=== PATIENT | female | born 1950 | race Caucasian/White ===

== ENCOUNTER 2019-04-25 15:35 | Outpatient (CLI) | payer MEDICARE, SELFPAY ==
--- NOTE | ~2019-04-25 | MM_ITS ---
EXAMINATION: MM screening gustavo BI w mary HISTORY: Screening mammogram TECHNIQUE: Craniocaudal and mediolateral oblique 3-D tomosynthesis images were obtained and synthetic 2-D images were generated. CAD analysis was submitted and interpreted. COMPARISON: 12/29/2017, 12/28/2016, 12/19/2015 bilateral digital screening mammogram examinations BREAST PARENCHYMAL COMPOSITION: FINDINGS: There is no evidence of suspicious mass, calcification, or architectural distortion to sugg est malignancy in either breast. There has been no suspicious interval change. IMPRESSION: 1. No mammographic evidence of malignancy. 2. Recommend routine screening mammography in one year. BI-RADS Category 1: Negative Reviewed, dictated and finalized at location A. WAY ENGINEERING TECHNICIAN
== END 2019-04-25 15:36 | disposition home or self-care (01) ==
LOC: ANHIMG 15:40
PROVIDERS: PCP Internal Medicine; Visit Provider Obstetrics & Gynecology
DX: Z12.31 Encounter for screening mammogram for malignant neoplasm of breast (principal)
CPT/HCPCS: 77063; 77067

== ENCOUNTER 2019-06-15 11:50 | Outpatient (CLI) | payer MEDICARE, SELFPAY ==
[2019-06-15 12:40] LABS: Alanine Aminotransferase 22 U/L (4-35); Albumin Level 4.6 g/dL (3.5-5.1); Alkaline Phosphatase 71 U/L (38-126); Aspartate Amino Transferase 28 U/L (14-36); Bilirubin,Total 0.4 mg/dL (0.2-1.3); Blood Urea Nitrogen 21 mg/dL (7-17); Calcium 9.6 mg/dL (8.4-10.2); Carbon Dioxide 29 mmol/L (22-30); Chloride 100 mmol/L (98-107); Cholesterol 199 mg/dL (0-200); Estimated Glomerular Filt Rate 49; Glucose 124 mg/dL (65-105); HDL Direct 78 mg/dL; Potassium 4.1 mmol/L (3.4-5.0); Sodium 136 mmol/L (137-145); Triglycerides 49 mg/dL (<150)
[2019-06-15 12:41] LABS: Basophils Percent Auto 0.1 % (0.2-1.2); Hemoglobin 14.3 g/dL (12.0-15.0); Immature Granulocyte Absolute 0.04 K/mm3 (0.00-0.031); Immature Granulocyte Percent A 0.4 % (0-0.5); Lymphocytes Absolute Auto 0.58 K/mm3 (0.9-3.2); Lymphocytes Percent Auto 5.6 % (18.3-44.2); Mean Corpuscular HGB Conc 32.5 g/dl (32-36); Mean Corpuscular Hemoglobin 27.3 pg (26-34); Mean Corpuscular Volume 84.1 fl (80-100); Mean Platelet Volume 9.6 fl (7.4-10.4); Monocytes Absolute Auto 0.3 K/mm3 (0.1-0.6); Monocytes Percent Auto 2.4 % (2.6-8.5); Neutrophils Absolute Auto 9.4 K/mm3 (1.3-6.7); Neutrophils Percent Auto 91.5 % (45.5-73.1); Platelet Count Result 253 k/mm3 (150-375); Red Blood Count 5.23 M/mm3 (4.2-5.4); Red Cell Distribution Width 12.5 % (11.5-14.5); White Blood Count 10.3 K/mm3 (4.5-10.0)
[2019-06-15 12:51] LABS: LDL Cholesterol Direct 88 mg/dL
[2019-06-15 17:36] LABS: Free T4 Free Thyroxine 1.69 ng/mL (0.78-2.19)
[2019-06-16 19:47] LABS: Angiotensin Converting Enzyme 27 U/L (9-67)
== END 2019-06-15 11:51 | disposition home or self-care (01) ==
LOC: ANHLAB 12:04
PROVIDERS: PCP Internal Medicine; Visit Provider Internal Medicine
DX: R05 Cough (principal); Z79.899 Other long term (current) drug therapy
CPT/HCPCS: 36415; 80053; 80061; 82164; 82785; 83036; 84439; 84443; 85025; 86003

== ENCOUNTER 2019-06-15 14:47 | Outpatient (CLI) | payer MEDICARE, SELFPAY ==
--- NOTE | ~2019-06-15 | CT_ITS ---
EXAMINATION: CT chest high resolution wo sd DATE: 06/15/2019 12:52 INDICATION: Chronic cough TECHNIQUE: Computed tomography (CT) of the chest was performed without intravenous contrast. The dose -length product (DLP) was 226.62 mGy-cm. Automated exposure control and iterative reconstruction tech nique were employed. COMPARISON: 10/31/2018 FINDINGS: The lungs are free of acute opacities. There is no pleural effusion or pneumothorax. Calcif ied pulmonary nodules and calcified right hilar and mediastinal lymph nodes are consistent with old g ranulomatous disease. Again noted is a fissural lymph node in the minor fissure. The heart size is no rmal. There are no pathologically enlarged thoracic lymph nodes. There is moderate thoracic spondylos is. IMPRESSION: 1. No CT correlate for the patient's symptoms. No acute cardiopulmonary abnormality. Reviewed, dictated and finalized at location A. IMPRESSION: 1. No CT correlate for the patient's symptoms. No acute cardiopulmonary abnorma lity.
== END 2019-06-15 14:48 | disposition home or self-care (01) ==
LOC: ANHIMG 07-21 14:47
PROVIDERS: PCP Internal Medicine; Visit Provider Internal Medicine
DX: R05 Cough (principal)
CPT/HCPCS: 71250

== ENCOUNTER 2019-06-19 08:29 | Outpatient (CLI) | payer MEDICARE, SELFPAY | END 2019-06-19 08:30 | disposition home or self-care (01) | PROVIDERS: PCP Internal Medicine; Visit Provider Internal Medicine | DX: R05 Cough (principal) | CPT/HCPCS: 87070; 87205 ==

== ENCOUNTER 2019-06-21 09:19 | Outpatient (CLI) | payer MEDICARE, SELFPAY ==
--- NOTE | ~2019-06-21 | XR_ITS ---
MODIFIED ESOPHAGRAM HISTORY: Cough with eating TECHNIQUE: Modified barium esophagram was performed by speech pathologist under radiologist fluorosco pic guidance. This was recorded on tape. The exam was reviewed on 06/21/2019 10:29 CDT. The DAP for this procedure was 0.87 Gycm2. Fluoroscopy time is 1.4 minutes. FINDINGS: Lateral projection of the cervical spine demonstrates normal alignment. There is normal s wallowing function without laryngeal penetration or aspiration. The upper esophageal sphincter appear s slightly narrowed with trace backflow to the piriform sinus.. IMPRESSION: 1: Normal swallowing without penetration or aspiration. 2: Please refer to speech pathologist report for additional detail. Reviewed, dictated and finalized at location A.
--- NOTE | 2019-06-21 11:46 | STOPEVAL ---
Modified Barium Swallow Evaluation: Attending Provider: Alfred Lopez MD *ST Outpatient Evaluation Start: 06/21/19 11:33 Freq: Status: Active Protocol: Document 06/21/19 11:34 BECHERERT (Rec: 06/21/19 11:46 BECHERERT [email or web address]) Therapy Assessment Status Assessment Status Assessment Status Evaluation Outpatient Past Medical History Respiratory History Hx Asthma Yes Pain Assessment Timing of Pain Assessment Timing of Pain Assessment Assessment Self Report Self Report Pain Level 0 Pain Scale Pain Scale Used Numeric (1 - 10) Pain Score Pain Score 0: Self Report Modified Barium Swallow Evaluation Recent Swallowing History Reports Dysphagia occasional cough with eating Duration of Dysphagia 2 years Reported Difficult Consistencies Unable to Identify Intake Method Prior to Swallow Oral Evaluation Diet Prior to Swallow Evaluation Regular, Level 7 Liquid Consistency Prior to Swallow Thin (0) Evaluation Consistency Thin Uncontrolled 1 Other Amount cup and straw Oral Preparatory Symptoms None Oral Phase Symptoms None Pharyngeal Phase Symptoms Within Functional Limits, Cricopharyngeal Dysfunction Severity of Vallecular Residue None - 0% No Residue Severity of Pyriform Sinus Residue None - 0% No Residue 8 Point Laryngeal Penetration-Aspiration Material Does Not Enter Airway Scale Pharyngeal Phase Comments appearance of a slightly tight UES -- trace backflow to pyriform sinus Cervical/Esophageal Symptoms Within Functional Limits Solid Consistency Uncontrolled 2 Other Amount liquid/solid mix (fruit cocktail) Method of Presentation Spoon Oral Preparatory Symptoms None Oral Phase Symptoms None Pharyngeal Phase Symptoms Within Functional Limits, Cricopharyngeal Dysfunction Severity of Vallecular Residue None - 0% No Residue Severity of Pyriform Sinus Residue None - 0% No Residue 8 Point Laryngeal Penetration-Aspiration Material Does Not Enter Airway Scale Pharyngeal Phase Comments appearance of a slightly tight UES -- trace backflow to pyriform sinus Cervical/Esophageal Symptoms Within Functional Limits Solid Consistency Uncontrolled 1 Other Amount cracker Method of Presentation Spoon Oral Preparatory Symptoms None Oral Phase Symptoms None Pharyngeal Phase Symptoms Within Functional Limits, Cricopharyngeal Dysfunction Severity of Vall
== END 2019-06-21 09:20 | disposition home or self-care (01) ==
PROVIDERS: PCP Internal Medicine; Visit Provider Internal Medicine
DX: R05 Cough (principal)
CPT/HCPCS: 92611

== ENCOUNTER 2019-09-05 08:51 | Outpatient (RCR) | payer MEDICARE, SELFPAY ==
--- NOTE | 2019-09-07 14:58 | STOPEVAL ---
OUTPATIENT SPEECH THERAPY EVALUATION AND DISCHARGE: Thank you for referring Yadira Medley to [facility]. Please review, sign, date and return this evaluation & discharge summary KUSUM. I agree with and certify that the following plan of care is medically necessary. Referring Physician Date Attending Provider: Alfred Lopez MD * Outpatient Evaluation & Discharge: Start: 09/07/19 14:37 Freq: Status: Active Protocol: Document 09/05/19 09:00 BECHERERT (Rec: 09/07/19 14:58 BECHERERT [email or web address]) Therapy Assessment Status Assessment Status Assessment Status Evaluation Outpatient Past Medical History Past Medical History No Past Medical/Surgical History Patient/Family Denies Significant Past Medical/ Surgical History Respiratory History Hx Asthma Yes Prior Level of Function Prior Swallow Level Prior Intake Method Oral Prior Diet Regular (Level 7 Diet) Prior Liquid Consistency Thin (Level 0 Diet) Pain Assessment Timing of Pain Assessment Timing of Pain Assessment Assessment Self Report Self Report Pain Level 0 Pain Score Pain Score 0: Self Report Bedside Swallow Evaluation General Reports Dysphagia Yes Onset of Dysphagia 2 years ago History of Dysphagia No Other Factors Impacting Dysphagia None History of Pneumonia No Intake Method Prior to Swallow Oral Evaluation Diet Prior to Swallow Evaluation Regular, Level 7 Liquid Consistency Prior to Swallow Thin (0) Evaluation Cognition During Swallowing Alert,Attentive Recommendations Feeding Type Recommended Oral Food Consistency Regular, Level 7 Liquid Consistency Thin (0) Mealtime Procedures Recommended Multiple Swallows Speech Therapy Teaching Adult Speech Therapy Teaching Swallowing/Communication Education Topic Swallowing As Pertains to Compensatory Strategies, Potential Etiology,Test Results Recipient(s) of Teaching Patient Learning Preferences One-on-One Instruction Barriers to Learning None Readiness to Learn Excellent Teaching Method(s) Handout,One-On-One Instruction Response(s) to Teaching Verbalizes Understanding ST Clinical Summary Clinical Summary ST Clinical Summary Pt was seen for an outpatient MBS on 06-21-2019 completed by this MICROMATIC HONE OPERATOR. At that time, results revealed the following (summary copied from that report):
== END 2019-09-08 15:10 | disposition home or self-care (01) ==
LOC: ANHST 08:51
PROVIDERS: PCP Internal Medicine; Visit Provider Internal Medicine
DX: R13.10 Dysphagia, unspecified (principal); R05 Cough
CPT/HCPCS: 92610

== ENCOUNTER 2020-02-07 09:42 | Outpatient (NON) | payer MEDICARE, SELFPAY ==
[2020-02-07 12:33] LABS: Influenza Control Positive
== END 2020-02-07 09:43 ==
PROVIDERS: PCP Internal Medicine; Visit Provider Internal Medicine
DX: R68.89 Other general symptoms and signs (principal)
CPT/HCPCS: 87804

== ENCOUNTER 2020-02-12 14:32 | Outpatient (CLI) | payer MEDICARE, SELFPAY ==
--- NOTE | ~2020-02-12 | XR_ITS ---
EXAMINATION: XR chest 2V DATE: 02/12/2020 14:54 INDICATION: Shortness of breath. COVID-19 pneumonia. TECHNIQUE: Frontal and lateral views of the chest were obtained. COMPARISON: Chest 2 views 08/12/2018, chest CT 06/15/2019 FINDINGS: There is mild scarring at the lung apices. There are airspace opacities in the mid and lowe r lung zones. No pleural effusion or pneumothorax. The heart size is normal. Calcified right hilar an d mediastinal lymph nodes are consistent with old granulomatous disease. Surgical clips in the right upper quadrant are likely from cholecystectomy. IMPRESSION: 1. Airspace opacities in the mid and lower lung zones, consistent with pneumonia. Reviewed, dictated and finalized at location A. CTURAL STEEL EQUIPMENT ERECTOR IMPRESSION: 1. Airspace opacities in the mid and lower lung zones, consistent with pneumoni a.
== END 2020-02-12 14:33 | disposition home or self-care (01) ==
PROVIDERS: PCP Internal Medicine; Visit Provider Internal Medicine
DX: U07.1 COVID-19 (principal); R06.02 Shortness of breath; R91.8 Other nonspecific abnormal finding of lung field
CPT/HCPCS: 71046

== ENCOUNTER 2020-02-17 11:05 | Inpatient (IN) | payer MEDICARE, SELFPAY ==
[2020-02-17] VITALS (13 sets, daily range): BP systolic 114–154; BP diastolic 64–85; PULSE 70–84; RESP 18–24; TEMP 35.9–36.6; O2SAT 86–98; BMI 33.0
--- NOTE | ~2020-02-17 | XR_ITS ---
EXAMINATION: XR chest 1V portable EXAM DATE: 02/17/2020 11:49 INDICATION: covid +, shortness of breath. TECHNIQUE: Portable AP frontal chest x-ray was obtained. Comparison is made to prior examination from 02/12/2020. FINDINGS: On prior study there are scattered bibasilar small opacities. These have progressed, now mo derate amount of bibasilar airspace disease, consistent with provided history of COVID pneumonia. No pneumothorax or pleural effusion. Cardiomediastinal silhouette is normal. There are cholecystectomy c lips. There are no osseous abnormalities identified. IMPRESSION: Worsening moderate amount of bibasilar COVID pneumonia. Reviewed, dictated and finalized at location A. TRONICS HARDWARE DESIGN ENGINEER
--- NOTE | 2020-02-17 11:33 | ECG_ITS ---
Measurements Intervals [place] Rate: 75 P: 43 VA: 143 QRS: -22 QRSD: 97 T: 30 QT: 407 QTc: 457 Interpretive Statements SINUS RHYTHM BORDERLINE T WAVE ABNORMALITY- INFERIOR LEADS BASELINE ARTIFACT- I, II, V3, V6 BORDERLINE ECG Electronically Signed On 02-17-2020 14:17:20 LINE RUNNER by Dell Bales D.O.
[2020-02-17 11:50] LABS: Basophils Percent Auto 0.2 % (0.2-1.2); Eosinophils Percent Auto 0.9 % (0-4.4); Hematocrit 43.3 % (37.0-47.0); Hemoglobin 14.4 g/dL (12.0-15.0); Immature Granulocyte Absolute 0.02 K/mm3 (0.00-0.031); Immature Granulocyte Percent A 0.4 % (0-0.5); Lymphocytes Absolute Auto 0.71 K/mm3 (0.9-3.2); Lymphocytes Percent Auto 15.9 % (18.3-44.2); Mean Corpuscular HGB Conc 33.3 g/dl (32-36); Mean Corpuscular Hemoglobin 26.9 pg (26-34); Mean Corpuscular Volume 80.9 fl (80-100); Mean Platelet Volume 8.5 fl (7.4-10.4); Monocytes Absolute Auto 0.2 K/mm3 (0.1-0.6); Monocytes Percent Auto 4.7 % (2.6-8.5); Neutrophils Absolute Auto 3.5 K/mm3 (1.3-6.7); Neutrophils Percent Auto 77.9 % (45.5-73.1); Platelet Count Result 296 k/mm3 (150-375); Red Blood Count 5.35 M/mm3 (4.2-5.4); Red Cell Distribution Width 13.4 % (11.5-14.5); White Blood Count 4.5 K/mm3 (4.5-10.0)
[2020-02-17 12:04] LABS: Alanine Aminotransferase 90 U/L (4-35); Albumin Level 3.7 g/dL (3.5-5.1); Alkaline Phosphatase 76 U/L (38-126); Anion Gap 7 mmol/L (8-16); Aspartate Amino Transferase 106 U/L (14-36); Bilirubin,Total 0.6 mg/dL (0.2-1.3); Blood Urea Nitrogen 7 mg/dL (7-17); Calcium 8.6 mg/dL (8.4-10.2); Carbon Dioxide 33 mmol/L (22-30); Chloride 95 mmol/L (98-107); Estimated CRCL calculation 59 ml/min; Estimated Glomerular Filt Rate > 60; Glucose 97 mg/dL (65-105); Potassium 3.8 mmol/L (3.4-5.0); Sodium 135 mmol/L (137-145)
[2020-02-17 12:08] LABS: CRP 8.8 mg/dL (<1.0)
[2020-02-17 12:12] LABS: Lactic Acid Reflex 0.9 mmol/L (0.7-2.1)
--- NOTE | 2020-02-17 12:14 | ED.URI ---
HPI - URI/Sore Throat General Chief Complaint: Upper Respiratory Infection <Radha Shelley PA-C - Last Filed: 02/17/20 19:06> Stated Complaint: covid/weakness <PONCHO Juarez Last Filed: 02/17/20 19:06> Time Seen by Provider: 02/17/20 11:29 <PONCHO Juarez Last Filed: 02/17/20 19:06> Source: patient <PONCHO Juarez Last Filed: 02/17/20 19:06> Mode of arrival: ambulatory <PONCHO Juarez Last Filed: 02/17/20 19:06> Limitations: no limitations <PONCHO Juarez Last Filed: 02/17/20 19:06> History of Present Illness HPI Narrative: This is a 70 year old female that presents to the ER for generalized weakness. Reports she was diagnosed with COVID about 10 days ago. Reports she is feeling short of breath. Reports cough. Reports her fever has now broke, she is no longer having diarrhea. Her oxygen saturation was reading in the upper 80s to low 90s at home which prompted her to be seen. Reports she has finished a Z pac for pneumonia. Denies chest pain or lower extremity edema. <Radha Shelley PA-C - Last Filed: 02/17/20 19:06> Related Data Home Medications: Home Medications Medication Instructions Recorded Confirmed cetirizine 10 mg capsule 10 mg PO DAILY PRN cap 01/09/19 02/17/20 flaxseed oil 1,000 mg capsule 1,000 mg PO DAILY 01/09/19 02/17/20 levothyroxine 137 mcg tablet 137 mcg PO DAILY 01/09/19 02/17/20 mecobalamin (vitamin B12) 1,000 1,000 mcg SUBLINGUAL DAILY 01/09/19 02/17/20 mcg disintegrating tablet,sublingual <PONCHO Juarez Last Filed: 02/17/20 19:06> Allergies/Adverse Reactions: Allergies Allergy/AdvReac Type Severity Reaction Status Date / Time Cephalosporins Allergy Unknown Skin Verified 02/17/20 11:35 Reaction <Radha Shelley PA-C - Last Filed: 02/17/20 19:06> Review of Systems Review of Systems: Narrative: CONSTITUTIONAL: Denies fever ENT: Reports congestion CARDIOVASCULAR: Denies chest pain, or edema. RESPIRATORY: Reports cough and dyspnea. GASTROINTESTINAL: Reports diarrhea. GENITOURINARY: Denies dysuria MUSCULOSKELETAL: Reports myalgias NEUROLOGIC: Reports generalized weakness. <Radha Shelley PA-C - Last Filed: 02/17/20 19:06> All systems reviewed & are unremarkable except as noted in HPI and below <Radha Shelley PA-C - Last Filed: 02/17/20 19:06> [facility] Past Medical History Medical History: Medical History Asthma Benign essential hypertension BMI 32.0-32.9,adult Chronic cough Dysphagia Encounter for Medicare annual wellness exam Follow up GERD (gastroesophageal reflux disease) Hearing loss Hypothyroidism (acquired) Mild reactive airways disease Mixed hyperlipidemia On terminal superintendent drug therapy On custodial drug therapy MELISSA on CPAP Pre-diabetes Routine gynecological examination Sleep apnea <Radha Shelley PA-C - Last Filed: 02/17/20 19:06> Surgical History Surgical History: Surgical History History of cholecystectomy <Radha Shelley PA-C - Last Filed: 02/17/20 19:06> Family History Family History: Family History Mother Hypertension Family history of lung disease <Radha Shelley PA-C - Last Filed: 02/17/20 19:06> Social History Social History: Social History (Updated 02/17/20 @ 15:06 by Margarita Hale PA-C) Social History: Patient drinks about 1 alcoholic beverage a night and has never smoked. She does not do drugs. She would like to be a full code and if she is unable to make decisions for herself she would like her , Don, to make decisions for her Smoking status: Never smoker Alcohol intake: current Drinks per week: 1 Substance use: never Gender identity (if verbalized by the patient): Female Spiritual care concerns: No
[2020-02-17] MEDS: DEXAMETHASONE SOD PHOS INJ 4 MG/ML VIAL 6 MG IV PUSH (13:15)
[2020-02-17 13:16] LABS: Add Urine Microscopic? YES; Appearance Urine Clear (Clear); Bacteria Urine Trace /hpf; Bilirubin Urine Negative (Negative); Blood Urine 1+ (Negative); Color Urine Yellow (Yellow); Glucose Urine UA Negative (Negative); Ketones Urine Negative (Negative); Leukocyte Esterase Ur Negative LEU/UL (Negative); Mucus Urine Rare /lpf; Nitrate Urine Negative (Negative); Protein Urine Negative (Negative); Specific Grav Ur 1.008 (1.001-1.035); Urobilinogen Urine Negative mg/dL (<2.0)
[2020-02-17] MEDS: REMDESIVIR 200 MG/NS 250 ML 200 MG/250 ML BAG 250 MG IVPB (13:52)
--- NOTE | 2020-02-17 14:22 | PM.IMHP ---
H&P: HPI History of Present Illness Date/Time: 02/17/20 14:22 Chief Complaint: Shortness of breath Narrative: Yadira Medley is a 70 year old female with a past medical history of asthma, hypertension, obstructive sleep apnea, and hypothyroidism and a recent history of COVID-19 infection who presented emergency room for worsening shortness of breath and fever. Patient states that she started having symptoms February 05, 2020 after multiple coworkers were tested positive. She was given antibiotics outpatient which did not seem to help. She had a outpatient chest x-ray which showed pneumonia and she was trying to manage this with her primary care physician. She has nebulizers at home and she started using those every 4 hours but noted that she continued to have hypoxia with oxygen saturations in the 80s which prompted her to come in. She is feeling better now on the oxygen but continues to have a significant cough. She is coughing up yellow sputum with bright red specks. Her shortness of breath seems to be more with activity and with coughing spells but not so much at rest. She has some back pain in the right side of her back with cough but no chest pain. She has had diarrhea for the last 7 days but that seems to be resolving. Her appetite is low but she is still able to eat. She denies leg swelling, nausea, vomiting, abdominal pain, dysuria, and chills. She has had a fever intermittently throughout the last week. She has multiple coworkers and family members that are positive. Review of Systems Review of Systems: All systems reviewed & are unremarkable except as noted in HPI and below PMFSH Past Medical History Medical History Asthma Benign essential hypertension BMI 32.0-32.9,adult Chronic cough Dysphagia Encounter for Medicare annual wellness exam Follow up GERD (gastroesophageal reflux disease) Hearing loss Hypothyroidism (acquired) Mild reactive airways disease Mixed hyperlipidemia On longitudinal float operator drug therapy On longitudinal float operator drug therapy MELISSA on CPAP Pre-diabetes Routine gynecological examination Sleep apnea Surgical History Surgical History History of cholecystectomy Family History Family History Mother Hypertension Family history of lung disease Social History Social History (Updated 02/17/20 @ 15:06 by Margarita Hale PA-C) Social History: Patient drinks about 1 alcoholic beverage a night and has never smoked. She does not do drugs. She would like to be a full code and if she is unable to make decisions for herself she would like her , Don, to make decisions for her Smoking status: Never smoker Alcohol intake: never Gender identity (if verbalized by the patient): Female Meds Home Medications and Allergies Home Medications Medication Instructions Recorded Confirmed Type cetirizine 10 mg capsule 10 mg PO DAILY PRN cap 01/09/19 08/24/19 History cinnamon bark 500 mg capsule 500 mg PO DAILY 01/09/19 08/24/19 History flaxseed oil 1,000 mg capsule 1,000 mg PO DAILY 01/09/19 08/24/19 History levothyroxine 137 mcg tablet 137 mcg PO DAILY 01/09/19 08/24/19 History lysine 500 mg tablet 500 mg PO DAILY 01/09/19 08/24/19 History mecobalamin (vitamin B12) 1,000 1,000 mcg SUBLINGUAL DAILY 01/09/19 08/24/19 History mcg disintegrating tablet,sublingual hfpbaver-zetuzlc-film-lutein tablet mcg PO DAILY tablet 01/09/19 08/24/19 History omega 1-zzf-xti-fish oil 1,200 mg cap PO 01/09/19 08/24/19 History (144 mg-216 mg) capsule pseudoephedrine HCl 30 mg tablet 30 mg PO Q4-6H PRN 01/09/19 08/24/19 History fluticasone fur. 100 mcg-umeclid 1 inhalation INHALATION DAILY #28 01/10/19 08/24/19 Rx 62.5 mcg-vilant 25 mcg each inhalat.powder methylprednisolone 4 mg tablets in See Rx Instructions PO PER PKG DIR 06/13/19 07
[2020-02-17] MEDS: ENOXAPARIN 40 MG/0.4 ML SYRINGE SUB-Q (20:10)
[2020-02-17] MEDS: ALBUTEROL SULFATE (*SP) AEROSOL 1 PUFF 2 PUFF INHALATION (21:02)
[2020-02-18] VITALS (7 sets, daily range): BP systolic 100–117; BP diastolic 55–73; PULSE 66–76; RESP 16–20; TEMP 35.9–36.6; O2SAT 91–94
[2020-02-18] MEDS: ACETAMINOPHEN 325 MG TABLET 650 MG PO (00:43)
[2020-02-18] MEDS: ALBUTEROL SULFATE (*SP) AEROSOL 1 PUFF 2 PUFF INHALATION ×4 (00:45→21:18)
[2020-02-18 07:18] LABS: Basophils Percent Auto 0.2 % (0.2-1.2); Hematocrit 39.2 % (37.0-47.0); Hemoglobin 13.1 g/dL (12.0-15.0); Immature Granulocyte Absolute 0.03 K/mm3 (0.00-0.031); Immature Granulocyte Percent A 0.6 % (0-0.5); Lymphocytes Absolute Auto 0.62 K/mm3 (0.9-3.2); Lymphocytes Percent Auto 12.5 % (18.3-44.2); Mean Corpuscular HGB Conc 33.4 g/dl (32-36); Mean Corpuscular Hemoglobin 26.8 pg (26-34); Mean Corpuscular Volume 80.3 fl (80-100); Mean Platelet Volume 8.5 fl (7.4-10.4); Monocytes Absolute Auto 0.2 K/mm3 (0.1-0.6); Monocytes Percent Auto 3.4 % (2.6-8.5); Neutrophils Absolute Auto 4.1 K/mm3 (1.3-6.7); Neutrophils Percent Auto 83.3 % (45.5-73.1); Platelet Count Result 331 k/mm3 (150-375); Red Blood Count 4.88 M/mm3 (4.2-5.4); Red Cell Distribution Width 13.1 % (11.5-14.5)
[2020-02-18 07:25] LABS: Alanine Aminotransferase 74 U/L (4-35); Albumin Level 3.4 g/dL (3.5-5.1); Alkaline Phosphatase 69 U/L (38-126); Anion Gap 7 mmol/L (8-16); Aspartate Amino Transferase 64 U/L (14-36); Bilirubin,Total 0.6 mg/dL (0.2-1.3); Blood Urea Nitrogen 8 mg/dL (7-17); Calcium 8.5 mg/dL (8.4-10.2); Carbon Dioxide 29 mmol/L (22-30); Chloride 96 mmol/L (98-107); Estimated CRCL calculation 77 ml/min; Estimated Glomerular Filt Rate > 60; Glucose 132 mg/dL (65-105); Sodium 132 mmol/L (137-145)
[2020-02-18 07:44] LABS: Ovalocytes 1+ (NORMAL); Platelet Estimate Adequate (Adequate)
[2020-02-18] MEDS: DEXAMETHASONE SOD PHOS INJ 4 MG/ML VIAL 6 MG IV PUSH (08:55)
[2020-02-18] MEDS: ENOXAPARIN 40 MG/0.4 ML SYRINGE SUB-Q ×2 (08:56→20:58)
[2020-02-18] MEDS: FLUTICASONE PROPIONATE 0.05% NA SPR 16 GM BTL (*BKC) 2 SPRAY NASAL (13:43)
[2020-02-18] MEDS: MONTELUKAST SODIUM 10 MG TABLET BY MOUTH (13:44)
[2020-02-18] MEDS: LEVOTHYROXINE SODIUM 112 MCG TABLET PO (13:44)
[2020-02-18] MEDS: LEVOTHYROXINE SODIUM 25 MCG TABLET PO (13:44)
[2020-02-18] MEDS: PANTOPRAZOLE 40 MG TABLET PO ×2 (13:44→20:58)
--- NOTE | 2020-02-18 14:46 | PM.IMPN ---
Progress Note: A&P Assessment and Plan (1) Pneumonia due to COVID-19 virus: Code(s): U07.1 - COVID-19; J12.89 - Other viral pneumonia Status: Acute Assessment and Plan: Patient tested positive for COVID-19 02/07/20 -patient is improving on current treatment and we will continue with that -patient had x-ray in the ER which was worse compared to the chest x-ray she had on 02/03/2020 -she is outside the window for Remdesivir -continue Decadron, lovenox, and albuterol -patient currently requires supplemental oxygen and we will start weaning that -she previously had azithromycin outpatient, no additional antibiotics needed since this is likely viral in nature -continue isolation and incentive spirometer -lactic acid normal (2) Acute respiratory failure with hypoxia: Code(s): J96.01 - Acute respiratory failure with hypoxia Status: Acute Assessment and Plan: Continue oxygen supplementation for sats less than 90 (3) Generalized weakness: Code(s): R53.1 - Weakness Status: Acute Assessment and Plan: Due to viral illness -she worked with PT today and looks to be independent -no additional therapy required (4) Hypothyroid: Code(s): E03.9 - Hypothyroidism, unspecified Status: Acute Assessment and Plan: Continue levothyroxine (5) Transaminitis: Code(s): R74.01 - Elevation of levels of liver transaminase levels Status: Acute Assessment and Plan: Mild, Likely due to viral illness -improving -they were normal back in May -if they worsen, may consider additional workup (6) MELISSA (obstructive sleep apnea): Code(s): G47.33 - Obstructive sleep apnea (adult) (pediatric) Status: Acute Assessment and Plan: CPAP unable to be used without negative pressure room -restart after acute illness has improved at home (7) HTN (hypertension), benign: Code(s): I10 - Essential (primary) hypertension Status: Acute Assessment and Plan: Last blood pressure 100/59 -she has been weak and her blood pressures have been normal. Will hold hydrochlorothiazide at this time -consider restarting when the patient's blood pressure elevates (8) Abnormal finding on urinalysis: Code(s): R82.90 - Unspecified abnormal findings in urine Status: Acute Assessment and Plan: UA shows some minimal blood and very few white blood cells -urine sent for culture -no indication for antibiotics at this time -monitor (9) Asthma: Code(s): J45.909 - Unspecified asthma, uncomplicated Status: Acute Assessment and Plan: Chronic. No wheezing or exacerbation suspected -continue trilogy inhaler with albuterol (10) Hyponatremia: Code(s): E87.1 - Hypo-osmolality and hyponatremia Status: Acute Assessment and Plan: Mild at 132 -Likely due to acute illness -monitor Time Spent With Patient Time with patient: 25 - 35 minutes Subjective Date/time seen: 02/18/20 14:46 Interval history: Pt is a 70-year-old female here for COVID-19. Patient was seen today and states she feels a lot better compared to yesterday. She is able to do more activity without shortness of breath. She has no shortness of breath at rest but does feel a little on exertion. Her cough has improved and is now just having mild specks of blood in her sputum. She has a better appetite today and can finally smell and taste things. She has not had a bowel movement since being here. No chest pain, lower extremity weakness, fevers, chills, nausea or vomiting. Review of Systems Review of Systems: All systems reviewed & are unremarkable except as noted in HPI and below Exam Narrative: Exam Narrative: General:Well developed well nourished patient resting comfortably in bed in no acute distress HEENT: Normocephalic, atraumatic, PERRL, Sclerae anicteric, oral mucosa moist. Neck: S
[2020-02-18] MEDS: FLUTICASONE/UMECLIDIN/VILANTER 100-62.5-25 MCG ELLIPTA 1 PUFF INHALATION (16:25)
[2020-02-19] MEDS: ALBUTEROL SULFATE (*SP) AEROSOL 1 PUFF 2 PUFF INHALATION ×4 (02:33→21:40)
[2020-02-19 04:00] VITALS: BP 108/68; PULSE 67; RESP 18; TEMP 36.4; O2SAT 97
[2020-02-19] MEDS: LEVOTHYROXINE SODIUM 25 MCG TABLET PO (06:22)
[2020-02-19] MEDS: LEVOTHYROXINE SODIUM 112 MCG TABLET PO (06:22)
[2020-02-19 06:44] LABS: Alanine Aminotransferase 64 U/L (4-35); Albumin Level 3.4 g/dL (3.5-5.1); Alkaline Phosphatase 61 U/L (38-126); Anion Gap 6 mmol/L (8-16); Aspartate Amino Transferase 47 U/L (14-36); Bilirubin,Total 0.5 mg/dL (0.2-1.3); Blood Urea Nitrogen 10 mg/dL (7-17); CRP 3.6 mg/dL (<1.0); Calcium 8.5 mg/dL (8.4-10.2); Carbon Dioxide 32 mmol/L (22-30); Chloride 97 mmol/L (98-107); Estimated CRCL calculation 67 ml/min; Estimated Glomerular Filt Rate > 60; Glucose 132 mg/dL (65-105); Potassium 4.1 mmol/L (3.4-5.0); Sodium 135 mmol/L (137-145)
[2020-02-19 08:00] VITALS: BP 115/72; PULSE 66; RESP 18; TEMP 36.2; O2SAT 97
[2020-02-19] MEDS: DEXAMETHASONE SOD PHOS INJ 4 MG/ML VIAL 6 MG IV PUSH (10:00)
[2020-02-19] MEDS: ENOXAPARIN 40 MG/0.4 ML SYRINGE SUB-Q ×2 (10:00→21:15)
[2020-02-19] MEDS: MONTELUKAST SODIUM 10 MG TABLET BY MOUTH (10:00)
[2020-02-19] MEDS: PANTOPRAZOLE 40 MG TABLET PO ×2 (10:00→21:41)
[2020-02-19] MEDS: FLUTICASONE PROPIONATE 0.05% NA SPR 16 GM BTL (*BKC) 2 SPRAY NASAL (10:01)
[2020-02-19] MEDS: FLUTICASONE/UMECLIDIN/VILANTER 100-62.5-25 MCG ELLIPTA 1 PUFF INHALATION (10:01)
[2020-02-19 10:38] LABS: Lactate Dehydrogenase 1031 U/L (313-618)
--- NOTE | 2020-02-19 11:53 | PM.IMPN ---
Progress Note: A&P Assessment and Plan (1) Pneumonia due to COVID-19 virus: Code(s): U07.1 - COVID-19; J12.89 - Other viral pneumonia Status: Acute Assessment and Plan: Patient tested positive for COVID-19 02/07/20 -patient is improving on current treatment and we will continue with Decadron, lovenox, and albuterol -patient had x-ray in the ER which was worse compared to the chest x-ray she had on 02/03/2020 -she is outside the window for Remdesivir -patient currently requires supplemental oxygen and is now down to 1L. Pt is very anxious about going home -Home o2 will be ordered for tomorrow -she previously had azithromycin outpatient, no additional antibiotics needed since this is likely viral in nature -continue isolation and incentive spirometer -lactic acid normal (2) Acute respiratory failure with hypoxia: Code(s): J96.01 - Acute respiratory failure with hypoxia Status: Acute Assessment and Plan: Continue oxygen supplementation for sats less than 90 (3) Generalized weakness: Code(s): R53.1 - Weakness Status: Acute Assessment and Plan: Due to viral illness -she worked with PT today and looks to be independent -no additional therapy required (4) Hypothyroid: Code(s): E03.9 - Hypothyroidism, unspecified Status: Acute Assessment and Plan: Continue levothyroxine (5) Transaminitis: Code(s): R74.01 - Elevation of levels of liver transaminase levels Status: Acute Assessment and Plan: Mild, Likely due to viral illness -improving -they were normal back in May -if they worsen, may consider additional workup (6) MELISSA (obstructive sleep apnea): Code(s): G47.33 - Obstructive sleep apnea (adult) (pediatric) Status: Acute Assessment and Plan: CPAP unable to be used without negative pressure room -restart after acute illness has improved at home (7) HTN (hypertension), benign: Code(s): I10 - Essential (primary) hypertension Status: Acute Assessment and Plan: Last blood pressure 115/72 -she has been weak and her blood pressures have been normal. Will hold hydrochlorothiazide at this time -consider restarting when the patient's blood pressure elevates (8) Abnormal finding on urinalysis: Code(s): R82.90 - Unspecified abnormal findings in urine Status: Acute Assessment and Plan: UA shows some minimal blood and very few white blood cells -urine cx neg -no indication for antibiotics at this time (9) Asthma: Code(s): J45.909 - Unspecified asthma, uncomplicated Status: Acute Assessment and Plan: Chronic. No wheezing or exacerbation suspected -continue trilogy inhaler with albuterol (10) Hyponatremia: Code(s): E87.1 - Hypo-osmolality and hyponatremia Status: Acute Assessment and Plan: Mild and improved to 135 -Likely due to acute illness -monitor Subjective Date/time seen: 02/19/20 11:53 Interval history: Pt is a 70-year-old female here for COVID-19. Patient was seen today and feels as though she has improved. She is still weak but getting better. She is able to take deeper breaths now and able to walk longer distances in the room with the o2. She is a little nervous going home without o2. She feels a little shaky from the steroids. She has a better appetite today and can finally smell and taste things. She has not had a bowel movement since being here but had a lot of diarrhea prior to admission. No chest pain, lower extremity weakness, fevers, chills, nausea or vomiting. Exam Narrative: Exam Narrative: General:Well developed well nourished patient resting comfortably in bed in no acute distress HEENT: Normocephalic, atraumatic, PERRL, Sclerae anicteric, oral mucosa moist. Neck: Supple Resp: Decreased breath sounds bilaterally with crackles. No wheezing. Able to breathe d
[2020-02-19 12:00] VITALS: BP 111/57; PULSE 67; RESP 18; TEMP 36.2; O2SAT 96
[2020-02-19 16:00] VITALS: BP 111/57; PULSE 73; RESP 18; TEMP 36.6; O2SAT 95
[2020-02-19 16:17] VITALS: O2SAT 95
[2020-02-19 20:00] VITALS: BP 134/75; PULSE 81; RESP 16; TEMP 36.3; O2SAT 93
[2020-02-19] MEDS: ACETAMINOPHEN 325 MG TABLET 650 MG PO (20:01)
[2020-02-20] VITALS: BP 139/70; PULSE 70; RESP 16; TEMP 36.1; O2SAT 93
[2020-02-20 04:00] VITALS: BP 132/71; PULSE 73; RESP 18; TEMP 36.3; O2SAT 94
[2020-02-20] MEDS: LEVOTHYROXINE SODIUM 25 MCG TABLET PO (05:24)
[2020-02-20] MEDS: LEVOTHYROXINE SODIUM 112 MCG TABLET PO (05:25)
[2020-02-20 06:35] LABS: Alanine Aminotransferase 130 U/L (4-35); Albumin Level 3.5 g/dL (3.5-5.1); Alkaline Phosphatase 69 U/L (38-126); Anion Gap 6 mmol/L (8-16); Aspartate Amino Transferase 137 U/L (14-36); Bilirubin,Total 0.5 mg/dL (0.2-1.3); Blood Urea Nitrogen 10 mg/dL (7-17); Calcium 8.8 mg/dL (8.4-10.2); Carbon Dioxide 34 mmol/L (22-30); Chloride 95 mmol/L (98-107); Estimated CRCL calculation 67 ml/min; Estimated Glomerular Filt Rate > 60; Glucose 104 mg/dL (65-105); Potassium 3.9 mmol/L (3.4-5.0); Sodium 135 mmol/L (137-145)
[2020-02-20] MEDS: ALBUTEROL SULFATE (*SP) AEROSOL 1 PUFF 2 PUFF INHALATION (08:19)
[2020-02-20] MEDS: FLUTICASONE/UMECLIDIN/VILANTER 100-62.5-25 MCG ELLIPTA 1 PUFF INHALATION (08:22)
[2020-02-20] MEDS: ENOXAPARIN 40 MG/0.4 ML SYRINGE SUB-Q (08:22)
[2020-02-20] MEDS: MONTELUKAST SODIUM 10 MG TABLET BY MOUTH (08:24)
[2020-02-20] MEDS: PANTOPRAZOLE 40 MG TABLET PO (08:24)
[2020-02-20 09:20] VITALS: PULSE 70; O2SAT 93
[2020-02-20 09:25] VITALS: PULSE 96; O2SAT 92
[2020-02-20 09:35] VITALS: PULSE 76; O2SAT 94
--- NOTE | 2020-02-20 09:40 | HOMEO2EVAL ---
Home Oxygen Evaluation RC: Home Oxygen (O2) Evaluation Start: 02/20/20 09:00 Freq: ONCE Status: Active Protocol: RPE Activity Type Activity Date Activity User E-Sign Co-Sign Detail Recorded Client Recorded Date Recorded By Document 02/20/20 09:20 JOYCE [id number] 02/20/20 09:40 JOYCE Document 02/20/20 09:25 JOYCE [id number] 02/20/20 09:40 JOYCE Document 02/20/20 09:35 JOYCE [id number] 02/20/20 09:40 JOYCE 02/20/20 02/20/20 02/20/20 09:20 09:25 09:35 Home O2 Evaluation Test Phase Resting Exercise Resting Oxygen Delivery Room Air Room Air Room Air Pulse Oximetry (90-100 %) 93 92 94 Pulse Rate (60-100 beats/min) 70 96 76 Home Oxygen Evaluation Comments No home O2 needed Treatment Charges O2 Evaluation
--- NOTE | 2020-02-20 09:40 | PCRCNOTE ---
HOME O2 EVAL DONE, NO HOME O2 NEEDED, WHITEBOARD UPDATED AND RN NOTIFIED
[2020-02-20] MEDS: FLUTICASONE PROPIONATE 0.05% NA SPR 16 GM BTL (*BKC) 2 SPRAY NASAL (10:59)
[2020-02-20] MEDS: DEXAMETHASONE 2 MG TABLET 6 MG PO (10:59)
--- NOTE | 2020-02-20 12:14 | PM.DS ---
DS: Admitting Diagnosis Admitting Diagnosis Admitting Diagnosis: COVID pneumonia DS: Discharge Diagnosis Discharge Diagnosis (1) Pneumonia due to COVID-19 virus: Code(s): U07.1 - COVID-19; J12.89 - Other viral pneumonia Status: Acute Assessment and Plan: Date of Admission 02/17/20 Date of Discharge 02/20/20 Ms. Medley is a pleasant 70yo F with history of hypertension, sleep apnea, hypothyroidism, and asthma who presented to the ED for evaluation of fevers and weakness after testing positive for COVID-19 on 02/07/20. She was found to be hypoxic requiring supplemental oxygen and chest XR demonstrated worsening pneumonia. She was treated with 3 days of dexamethasone. Supportive care was continued with albuterol, tylenol, and incentive spirometry. She clinically improved and was weaned off oxygen, tolerating room air with adequate oxygen saturations day of discharge. She is noted to have elevated LFTs without known liver disease this may be related to her viral illness, recommend follow up labs at discharge to monitor. She was feeling better and was eager for discharge, hemodynamically stable for such on 02/20/20 with instructions to follow up with Dr Lopez in 1 week. (2) Acute respiratory failure with hypoxia: Code(s): J96.01 - Acute respiratory failure with hypoxia Status: Resolved Assessment and Plan: Resolved, tolerating room air at discharge. (3) Generalized weakness: Code(s): R53.1 - Weakness Status: Acute Assessment and Plan: Secondary to acute illness with COVID pneumonia. She worked with PT today and looks to be independent. No additional therapy required (4) Hypothyroid: Code(s): E03.9 - Hypothyroidism, unspecified Status: Acute Assessment and Plan: Continue levothyroxine (5) Transaminitis: Code(s): R74.01 - Elevation of levels of liver transaminase levels Status: Acute Assessment and Plan: Mild, suspect related to acute viral illness. CMP in 1 week and follow up with PCP for monitoring. (6) MELISSA (obstructive sleep apnea): Code(s): G47.33 - Obstructive sleep apnea (adult) (pediatric) Status: Acute Assessment and Plan: CPAP unable to be used without negative pressure room due to COVID. (7) HTN (hypertension), benign: Code(s): I10 - Essential (primary) hypertension Status: Acute Assessment and Plan: BPs were stable/ on lower end thus HCTZ was held inpatient. BPs stable at discharge and HCTZ will be resumed. Follow up with PCP. (8) Abnormal finding on urinalysis: Code(s): R82.90 - Unspecified abnormal findings in urine Status: Acute Assessment and Plan: UA shows some minimal blood and very few white blood cells. Urine culture negative, asymptomatic thus no indication for antibiotics at this time. (9) Asthma: Code(s): J45.909 - Unspecified asthma, uncomplicated Status: Acute Assessment and Plan: Continue trelogy inhaler and albuterol. (10) Hyponatremia: Code(s): E87.1 - Hypo-osmolality and hyponatremia Status: Acute Assessment and Plan: Mild and improved, suspect related to acute illness. DS: Summary Hospital Course Hospital Course: See above. Time Spent with Patient Time attestation: Total time spent providing and/or coordinating discharge services: 40 minutes Exam Narrative: Exam Narrative: General:Well developed well nourished patient resting comfortably sitting up in bedside chair in no acut
[2020-02-20 13:00] VITALS: BP 134/69; PULSE 81; RESP 20; TEMP 36.8; O2SAT 97
== END 2020-02-20 14:15 | disposition home or self-care (01) | DRG 177 ==
LOC: ANHED 11:49 → ANH3MEDSUR 18:04
PROVIDERS: Physician Assistant; Admitting Provider Internal Medicine; Emergency Provider General Practice; PCP Internal Medicine; Visit Provider Physician Assistant
DX: U07.1 COVID-19 (principal); J12.89 Other viral pneumonia; J96.01 Acute respiratory failure with hypoxia; E87.1 Hypo-osmolality and hyponatremia; I10 Essential (primary) hypertension; E03.9 Hypothyroidism, unspecified; J45.909 Unspecified asthma, uncomplicated; G47.33 Obstructive sleep apnea (adult) (pediatric); K21.9 Gastro-esophageal reflux disease without esophagitis; E78.5 Hyperlipidemia, unspecified; R73.03 Prediabetes; R82.90 Unspecified abnormal findings in urine; Z90.49 Acquired absence of other specified parts of digestive tract
CPT/HCPCS: 36415; 71045; 80048; 80053; 80076; 81001; 82728; 83605; 83615; 85025; 86140; 87040; 87086; 93005; 94618; 96374; 97161; 97165; 99291; A9270; J1100; J1650; J8540

== ENCOUNTER 2020-04-29 08:53 | Outpatient (CLI) | payer MEDICARE, SELFPAY ==
--- NOTE | ~2020-04-29 | MM_ITS ---
EXAMINATION: MM screening gust[facility] BI w mary HISTORY: Screening mammogram TECHNIQUE: Craniocaudal and mediolateral oblique 3-D tomosynthesis images were obtained and synthetic 2-D images were generated. CAD analysis was submitted and interpreted. COMPARISON: 04/25/2019, 12/29/2017, 12/28/2016 bilateral digital screening mammogram examinations BREAST PARENCHYMAL COMPOSITION: There are scattered areas of fibroglandular density. FINDINGS: There is no evidence of suspicious mass, calcification, or architectural distortion to sugg est malignancy in either breast. There has been no suspicious interval change. IMPRESSION: 1. No mammographic evidence of malignancy. 2. Recommend routine screening mammography in one year. BI-RADS Category 1: Negative Reviewed, dictated and finalized at location A. SOFTWARE DEVELOPMENT ENGINEER
== END 2020-04-29 08:54 | disposition home or self-care (01) ==
LOC: ANHIMG 08:56
PROVIDERS: PCP Internal Medicine; Visit Provider Internal Medicine
DX: Z12.31 Encounter for screening mammogram for malignant neoplasm of breast (principal)
CPT/HCPCS: 77063; 77067

== ENCOUNTER → 2020-12-26 12:10 | Outpatient (CLI) | payer MEDICARE, SELFPAY ==
--- NOTE | ~2020-12-26 | XR_ITS ---
EXAMINATION: XR foot RT standing 2V INDICATION: Right foot pain TECHNIQUE: Two views of the right foot are obtained. COMPARISON: None available FINDINGS: There is no fracture, dislocation, or subluxation. Mild osteoarthritis is noted in multiple interphalangeal joints. The soft tissues are unremarkable. There are no productive changes of bony h ealing. Posterior and plantar calcaneal enthesophytes are noted. IMPRESSION: 1. No acute osseous abnormality. Reviewed, dictated and finalized at location B.
== END ==
PROVIDERS: PCP Internal Medicine; Visit Provider Internal Medicine
DX: M79.671 Pain in right foot (principal)
CPT/HCPCS: 73620

== ENCOUNTER → 2021-01-30 08:11 | Outpatient (CLI) | payer MEDICARE, SELFPAY ==
[2021-01-30 13:48] LABS: Influenza Control Positive
[2021-01-30 19:33] LABS: SARS-CoV-2 RNA PCR Negative
== END ==
PROVIDERS: PCP Internal Medicine; Visit Provider Internal Medicine
DX: R68.89 Other general symptoms and signs (principal); Z20.822 Contact with and (suspected) exposure to COVID-19
CPT/HCPCS: 87804; C9803; U0003; U0005

== ENCOUNTER 2021-07-14 09:46 | Outpatient (CLI) | payer MEDICARE, SELFPAY ==
--- NOTE | ~2021-07-14 | MM_ITS ---
EXAMINATION: MM screening gustavo BI w mary HISTORY: Screening mammogram TECHNIQUE: Craniocaudal and mediolateral oblique 3-D tomosynthesis images were obtained and synthetic 2-D images were generated. CAD analysis was submitted and interpreted. COMPARISON: No prior mammogram is available for comparison at this institution. BREAST PARENCHYMAL COMPOSITION: There are scattered areas of fibroglandular density. FINDINGS: There is no evidence of suspicious mass, calcification, or architectural distortion to sugg est malignancy in either breast. There has been no suspicious interval change. IMPRESSION: 1. No mammographic evidence of malignancy. 2. Recommend routine screening mammography in one year. BI-RADS Category 1: Negative Reviewed, dictated and finalized at location A.
== END 2021-07-14 09:47 | disposition home or self-care (01) ==
LOC: ANHIMG 09:50
PROVIDERS: PCP Internal Medicine; Visit Provider Obstetrics & Gynecology
DX: Z12.31 Encounter for screening mammogram for malignant neoplasm of breast (principal)
CPT/HCPCS: 77063; 77067

== ENCOUNTER 2021-07-19 07:05 | Emergency (ER) | payer MEDICARE, SELFPAY ==
--- NOTE | ~2021-07-19 | XR_ITS ---
XR chest 2V DATE: 07/19/2021 07:32 INDICATION: Cough, shortness of breath, low-grade fever. History of asthma. TECHNIQUE: AP and lateral views COMPARISON: 02/17/2020 portable AP chest FINDINGS: Normal heart size. No hilar or mediastinal enlargement. No pulmonary infiltrate or consolid ation, pleural effusion or pulmonary vascular congestion or pneumothorax. Osteopenia. Status post cholecystectomy. IMPRESSION: No active cardiopulmonary disease Reviewed, dictated and finalized at location A.
[2021-07-19 07:10] VITALS: BP 172/76; PULSE 95; RESP 16; TEMP 37.3; O2SAT 95
[2021-07-19 07:15] VITALS: PULSE 89
--- NOTE | 2021-07-19 07:18 | ECG_ITS ---
Measurements Intervals [place] Rate: 80 P: 5 OK: 132 QRS: 5 QRSD: 100 T: 31 QT: 384 QTc: 446 Interpretive Statements SINUS RHYTHM NORMAL ECG Electronically Signed On 07-19-2021 15:55:23 CDT by Dell Bales D.O.
--- NOTE | 2021-07-19 07:27 | PC.NURSE ---
Pt to XRAY via stretcher at this time.
--- NOTE | 2021-07-19 07:36 | ED.SOB ---
HPI - SOB/Dyspnea General Chief Complaint: Shortness of Breath/Dyspnea Stated Complaint: SOB, chest pressure, n/d Time Seen by Provider: 07/19/21 07:11 History of Present Illness HPI Narrative: 71-year-old female with history of asthma presents with increased difficulty breathing, nasal congestion, nausea vomiting and diarrhea, and fevers and chills for last few days, she has had her COVID-vaccine +1 booster. She says it feels different from her usual asthma exacerbation, she feels like a pressure in her chest and feels like the laceration pneumonia. No radiation of discomfort. Related Data Home Medications Medication Instructions Recorded Confirmed cetirizine 10 mg capsule 10 mg PO DAILY PRN Sinus Symptoms 01/09/19 06/03/21 flaxseed oil 1,000 mg capsule 1,000 mg PO DAILY 01/09/19 06/03/21 mecobalamin (vitamin B12) 1,000 1,000 mcg sublingual DAILY 01/09/19 06/03/21 mcg disintegrating tablet,sublingual cinnamon bark 500 mg capsule 1,000 mg PO DAILY 02/18/20 06/03/21 (Cinnamon) turmeric 400 mg capsule 450 mg PO DAILY 02/18/20 06/03/21 multivit with 1 tablet PO DAILY 08/05/20 06/03/21 dvwlunel-xvlo-GD-lutein 8 mg iron-400 mcg-300 mcg tablet (Centrum Silver Women) omega-3 fatty acids 1,000 mg 1,000 mg PO DAILY 08/05/20 06/03/21 capsule (Fish Oil Concentrate) biotin 1,000 mcg chewable tablet 1,000 mcg PO DAILY 09/16/20 06/03/21 Allergies Allergy/AdvReac Type Severity Reaction Status Date / Time Cephalosporins Allergy Unknown Skin Verified 07/19/21 07:14 Reaction Review of Systems Review of Systems: CONST: Chills HEENT: Congestion C/V: Pressure RESP: Cough GI: nausea, vomiting[, diarrhea] : No dysuria. M/S: No joint pain. SKIN: No rash. 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 Mixed hyperlipidemia On terminal carman drug therapy MELISSA on CPAP Pain in right foot Paresthesia of lower extremity Personal history of COVID-19 Pre-diabetes Routine gynecological examination Screening mammogram, encounter for Sleep apnea Surgical History Surgical History History of cholecystectomy History of colposcopy colposcopy vaginal wall dysplasia History of gynecological procedure D&C Family History Family History Mother Hypertension Family history of lung disease H/O ovarian cancer Father Diabetes mellitus Social History Social History Social History: Patient drinks about 1 alcoholic beverage a night and has never smoked. She does not do drugs. She would like to be a full code and if she is unable to make decisions for herself she would like her , Don, to make decisions for her Smoking status: Never smoker Alcohol intake: current Drinks per week: 1 Substance use: never Substance use type: does not use Additional living arrangements comments: Additional occupation/education comments: [employer] Gender identity (if verbalized by the patient): Female Sexual Orientation (if Verbalized by the Patient): Straight or Heterosexual Spiritual care concerns: No Exam Narrative: EXAMINATION OF ORGAN SYSTEMS/BODY AREAS: Constitutional: Vital signs per nursing GENERAL:[No acute distress, non-toxic appearing.] HEAD: Normal with n
[2021-07-19] MEDS: ONDANSETRON INJ 4 MG/2 ML VIAL IV PUSH (07:52)
[2021-07-19 07:55] LABS: Basophils Percent Auto 0.3 % (0.2-1.2); Eosinophils Absolute Auto 0.1 K/mm3 (0-0.3); Eosinophils Percent Auto 0.8 % (0-4.4); Hematocrit 43.3 % (37.0-47.0); Immature Granulocyte Absolute 0.02 K/mm3 (0.00-0.031); Immature Granulocyte Percent A 0.3 % (0-0.5); Lymphocytes Percent Auto 7.7 % (18.3-44.2); Mean Corpuscular HGB Conc 32.3 g/dl (32-36); Mean Corpuscular Volume 86.6 fl (80-100); Mean Platelet Volume 9.4 fl (7.4-10.4); Monocytes Absolute Auto 0.5 K/mm3 (0.1-0.6); Neutrophils Absolute Auto 6.5 K/mm3 (1.3-6.7); Neutrophils Percent Auto 83.9 % (45.5-73.1); Platelet Count Result 191 k/mm3 (150-375); White Blood Count 7.8 K/mm3 (4.5-10.0)
[2021-07-19 07:57] VITALS: PULSE 80; RESP 21; O2SAT 94
[2021-07-19 08:03] LABS: Alanine Aminotransferase 31 U/L (6-35); Albumin Level 4.1 g/dL (3.5-5.1); Alkaline Phosphatase 75 U/L (38-126); Anion Gap 7 mmol/L (8-16); Aspartate Amino Transferase 35 U/L (14-36); Bilirubin,Total 0.3 mg/dL (0.2-1.3); Blood Urea Nitrogen 13 mg/dL (7-17); Calcium 8.7 mg/dL (8.4-10.2); Carbon Dioxide 28 mmol/L (22-30); Chloride 102 mmol/L (98-107); Estimated CRCL calculation 57 ml/min; Estimated Glomerular Filt Rate > 60; Glucose 151 mg/dL (65-110); Potassium 3.3 mmol/L (3.4-5.0); Sodium 137 mmol/L (137-145)
[2021-07-19 08:14] LABS: Troponin I < 0.012 ng/mL (0.000-0.034)
[2021-07-19 08:38] LABS: Influenza A QL RT-PCR Negative (Negative); Influenza B QL RT-PCR Negative (Negative)
[2021-07-19 08:45] LABS: SARS-CoV-2 RNA PCR Negative
[2021-07-19 08:49] VITALS: PULSE 84; RESP 16; O2SAT 96
[2021-07-19] MEDS: POTASSIUM CHLORIDE 20 MEQ PACKET (FOR LIQUID) 40 MEQ PO (08:49)
[2021-07-19 09:24] VITALS: BP 125/74; PULSE 70; RESP 18; O2SAT 94
[2021-07-19 10:17] VITALS: BP 125/73; PULSE 71; RESP 20; O2SAT 94
== END 2021-07-19 10:17 | disposition home or self-care (01) ==
PROVIDERS: Emergency Provider Emergency Medicine; PCP Internal Medicine
DX: B34.9 Viral infection, unspecified (principal); Z20.822 Contact with and (suspected) exposure to COVID-19; I10 Essential (primary) hypertension; E03.9 Hypothyroidism, unspecified; E78.2 Mixed hyperlipidemia; J45.909 Unspecified asthma, uncomplicated; G47.33 Obstructive sleep apnea (adult) (pediatric); R73.03 Prediabetes; K21.9 Gastro-esophageal reflux disease without esophagitis; Z86.16 Personal history of COVID-19
CPT/HCPCS: 36415; 71046; 80053; 84484; 85025; 87502; 93005; 96374; 99284; A9270; C9803; J2405; U0003; U0005

== ENCOUNTER 2022-01-01 10:19 | Outpatient (CLI) | payer MEDICARE, SELFPAY ==
[2022-01-01 11:53] LABS: Influenza A QL RT-PCR Positive (Negative); Influenza B QL RT-PCR Negative (Negative); SARS-CoV-2 RNA PCR Negative
== END 2022-01-01 10:20 | disposition home or self-care (01) ==
LOC: ANHLAB 10:22
PROVIDERS: PCP Internal Medicine; Visit Provider Internal Medicine
DX: R50.9 Fever, unspecified (principal); Z20.822 Contact with and (suspected) exposure to COVID-19
CPT/HCPCS: 87502; U0003; U0005

== ENCOUNTER 2022-11-10 08:00 | Outpatient (NON) | payer MEDICARE, SELFPAY | END 2022-11-10 08:01 | disposition home or self-care (01) | LOC: ANHLAB 11-13 13:30 | PROVIDERS: PCP Internal Medicine; Visit Provider Nurse Practitioner | DX: L57.8 Other skin changes due to chronic exposure to nonionizing radiation (principal); I78.1 Nevus, non-neoplastic | CPT/HCPCS: 88305 ==

== ENCOUNTER 2023-02-12 08:31 | Emergency (ER) | payer MEDICARE, SELFPAY ==
--- NOTE | ~2023-02-12 | XR_ITS ---
EXAMINATION: XR chest 2V DATE: 02/12/2023 09:05 INDICATION: Chest congestion TECHNIQUE: PA and lateral views of the chest are obtained. COMPARISON: 07/19/2021 FINDINGS: The lungs are free of acute opacities. No pleural effusion or pneumothorax. The cardiomedia stinal silhouette is normal. There is moderate thoracic spondylosis. Calcified bilateral hilar and me diastinal lymph nodes are consistent with old granulomatous disease. Surgical clips in the right uppe r quadrant are likely from prior cholecystectomy. IMPRESSION: 1. No acute cardiopulmonary abnormality. Reviewed, dictated and finalized at location B. RT MANAGER
--- NOTE | 2023-02-12 08:33 | ECG_ITS ---
Measurements Intervals [place] Rate: 95 P: 36 AK: 108 QRS: 3 QRSD: 93 T: 44 QT: 353 QTc: 445 Interpretive Statements SINUS RHYTHM WITH SHORT AK INTERVAL OTHERWISE UNREMARKABLE ECG COMPARED TO ECG 07/19/2021 07:43:48 NO SIGNIFICANT CHANGES Electronically Signed On 02-12-2023 15:09:21 GEOTHERMAL HVAC TECHNICIAN by Gurperet Ernandez M.D.
[2023-02-12 08:34] VITALS: PULSE 103; RESP 20; TEMP 36.9; O2SAT 95
--- NOTE | 2023-02-12 08:45 | ED.CHESTPAIN ---
HPI - Chest Pain General Chief Complaint: Chest Pain Stated Complaint: Conjestion, Chest Tightness Time Seen by Provider: 02/12/23 08:43 Source: patient and family ( ) Mode of arrival: ambulatory Limitations: no limitations History of Present Illness HPI narrative: 73-year-old female who presents with chest pain and congestion. She is experiencing shortness of breath and subjective fevers as well as a cough productive of yellow sputum. Last week she took [id number] sinus medication. Her chest pain developed after her cough did. No underlying cardiac history. she experiences difficulty talking due to the shortness of breath. her chest pain is described as being located just below the clavicles bilaterally. PCP is Dr. Liriano. they prescribed azithromycin antibiotic patient has been taking this along with Sudafed. She continues to experience pain in her neck back, head. Related Data Home Medications Medication Instructions Recorded Confirmed cetirizine 10 mg capsule 10 mg PO DAILY PRN Sinus Symptoms 01/09/19 11/02/22 mecobalamin (vitamin B12) 1,000 1,000 mcg sublingual DAILY 01/09/19 11/02/22 mcg disintegrating tablet,sublingual cinnamon bark 500 mg capsule 1,000 mg PO DAILY 02/18/20 11/02/22 (Cinnamon) turmeric 400 mg capsule 450 mg PO DAILY 02/18/20 11/02/22 uzvmzbuj-ntsi-bxml 8 mg-folic 400 1 tablet PO DAILY 08/05/20 11/02/22 mcg-K 50 mcg-lutein 300 mcg tablet (Centrum Silver Women) omega-3 fatty acids 1,000 mg 1,000 mg PO DAILY 08/05/20 11/02/22 capsule (Fish Oil Concentrate) biotin 1,000 mcg chewable tablet 1,000 mcg PO DAILY 09/16/20 11/02/22 diclofenac sodium 1 % topical gel 2 g topical QID 06/16/22 11/02/22 (Voltaren Arthritis Pain) Allergies Allergy/AdvReac Type Severity Reaction Status Date / Time Cephalosporins Allergy Unknown Skin Verified 02/12/23 08:50 Reaction [facility] Past Medical History Medical History (Updated 02/13/23 @ 00:00 by Background Daemon) Actinic keratosis Asthma Benign essential hypertension BMI 31.0-31.9,adult BMI 32.0-32.9,adult Chronic cough Dysphagia Elevated LFTs Encounter for Medicare annual wellness exam Encounter for Papanicolaou smear for cervical cancer screening Encounter for routine adult health examination without abnormal findings Encounter for screening mammogram for malignant neoplasm of breast Follow up GERD (gastroesophageal reflux disease) Hearing loss Hypothyroidism (acquired) 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 Left foot pain Mild reactive airways disease Mixed hyperlipidemia On technician terminal and repeater drug therapy MELISSA on CPAP Pain in right foot Paresthesia of lower extremity Personal history of COVID-19 Pre-diabetes Routine gynecological examination Screening mammogram, encounter for Sleep apnea Surgical History Surgical History (Updated 11/02/22 @ 15:18 by Barbra Estevez Sammy) History of cholecystectomy History of colposcopy 04/26/08 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 She does not do drugs. She would like to be a full code and if she is unable to make decisions for herself she would like her , Don, to make decisions for her Smoking status: Never smoker Second hand tobacco smoke exposure: No Alcohol intake: current Drinks per week: 3 Substance use: never Substance use type: does not use Lack of Transportation: No Lack of Food: Never True Current Housing: I Have Housing Concerned About Future Housing: No
[2023-02-12 08:46] VITALS: PULSE 92
[2023-02-12 08:47] VITALS: BP 130/75; PULSE 91; RESP 17; O2SAT 95
[2023-02-12] MEDS: ASPIRIN 81 MG CHEWABLE TABLET 324 MG PO (08:49)
[2023-02-12 08:50] LABS: Basophils Percent Auto 0.4 % (0.2-1.2); Eosinophils Absolute Auto 0.1 K/mm3 (0-0.3); Hematocrit 45.9 % (37.0-47.0); Immature Granulocyte Absolute 0.03 K/mm3 (0.00-0.031); Immature Granulocyte Percent A 0.4 % (0-0.5); Lymphocytes Absolute Auto 0.73 K/mm3 (0.9-3.2); Lymphocytes Percent Auto 9.3 % (18.3-44.2); Mean Corpuscular HGB Conc 32.7 g/dl (32-36); Mean Corpuscular Hemoglobin 28.1 pg (26-34); Mean Platelet Volume 9.1 fl (7.4-10.4); Monocytes Absolute Auto 0.5 K/mm3 (0.1-0.6); Monocytes Percent Auto 6.2 % (2.6-8.5); Neutrophils Absolute Auto 6.5 K/mm3 (1.3-6.7); Neutrophils Percent Auto 82.7 % (45.5-73.1); Platelet Count Result 196 k/mm3 (150-375); Red Blood Count 5.34 M/mm3 (4.2-5.4); Red Cell Distribution Width 13.5 % (11.5-14.5); White Blood Count 7.9 K/mm3 (4.5-10.0)
[2023-02-12 09:00] LABS: Alanine Aminotransferase 40 U/L (6-35); Albumin Level 4.4 g/dL (3.5-5.1); Alkaline Phosphatase 69 U/L (38-126); Anion Gap 7 mmol/L (8-16); Aspartate Amino Transferase 37 U/L (14-36); Bilirubin,Total 0.6 mg/dL (0.2-1.3); Blood Urea Nitrogen 13 mg/dL (7-17); Carbon Dioxide 29 mmol/L (22-30); Chloride 100 mmol/L (98-107); Estimated CRCL calculation 56 ml/min; Estimated Glomerular Filt Rate > 60; Glucose 120 mg/dL (65-110); INR 0.9; Lipase 87 U/L (23-300); Potassium 3.9 mmol/L (3.4-5.0); Prothrombin Time 11.9 Seconds (11.1-14.7); Sodium 136 mmol/L (137-145)
[2023-02-12 09:01] LABS: Partial Thromboplastin Time 26.3 SECONDS (22.3-36.8)
[2023-02-12 09:11] LABS: Troponin I < 0.012 ng/mL (0.000-0.034)
[2023-02-12] MEDS: SODIUM CHLORIDE 0.9% IV 1,000 ML 999 ML IV CONT (09:12)
[2023-02-12 09:26] LABS: Influenza A QL RT-PCR Negative (Negative); Influenza B QL RT-PCR Negative (Negative); RSV RNA, RT-PCR Positive (Negative); SARS-CoV-2 RNA PCR Negative (Negative)
[2023-02-12 09:32] VITALS: BP 133/76; PULSE 88; RESP 13; TEMP 37.2; O2SAT 95
[2023-02-12] MEDS: KETOROLAC 15 MG/ML VIAL (*BKC) IV PUSH (10:05)
[2023-02-12] MEDS: ACETAMINOPHEN 500 MG TABLET 1000 MG PO (10:05)
[2023-02-12 10:06] VITALS: BP 111/89; PULSE 89; RESP 16; O2SAT 96
== END 2023-02-12 10:12 | disposition home or self-care (01) ==
PROVIDERS: Emergency Provider Student in an Organized Health Care Education/Training Program; PCP Internal Medicine
DX: R07.9 Chest pain, unspecified (principal); B97.4 Respiratory syncytial virus as the cause of diseases classified elsewhere; I10 Essential (primary) hypertension; E78.2 Mixed hyperlipidemia; G47.33 Obstructive sleep apnea (adult) (pediatric); E03.9 Hypothyroidism, unspecified; Z79.899 Other long term (current) drug therapy; Z20.822 Contact with and (suspected) exposure to COVID-19
CPT/HCPCS: 36415; 71046; 80053; 83690; 84484; 85025; 85610; 85730; 87637; 93005; 96361; 96374; 99284; A9270; J1885; J7030

== ENCOUNTER 2023-02-24 09:28 | Outpatient (CLI) | payer MEDICARE, SELFPAY ==
--- NOTE | ~2023-02-24 | MM_ITS ---
EXAMINATION: MM screening [facility] BI w mary HISTORY: Screening mammogram TECHNIQUE: Craniocaudal and mediolateral oblique 3-D tomosynthesis images were obtained and synthetic 2-D images were generated. CAD analysis was submitted and interpreted. COMPARISON: 07/14/2021, 04/29/2020, 04/25/2019 BREAST PARENCHYMAL COMPOSITION: The breasts are heterogeneously dense, which may obscure small masses . FINDINGS: No suspicious mass, calcification, or architectural distortion are identified in either balwinder ast to suggest malignancy. There has been no suspicious interval change. IMPRESSION: 1. No mammographic evidence of malignancy. 2. Recommend routine screening mammography in one year. BI-RADS Category 1: Negative Reviewed, dictated and finalized at location A. UREMENT INTERNSHIP
== END 2023-02-24 09:29 | disposition home or self-care (01) ==
LOC: ANHIMG 09:31
PROVIDERS: PCP Internal Medicine; Visit Provider Obstetrics & Gynecology
DX: Z12.31 Encounter for screening mammogram for malignant neoplasm of breast (principal)
CPT/HCPCS: 77063; 77067

== ENCOUNTER 2023-07-22 14:11 | Outpatient (CLI) | payer MEDICARE, SELFPAY | END 2023-07-22 14:12 | disposition home or self-care (01) | LOC: ANHAUDIO 14:11 | PROVIDERS: PCP Internal Medicine; Visit Provider Internal Medicine | DX: H90.3 Sensorineural hearing loss, bilateral (principal) | CPT/HCPCS: 92557; 92567 ==

== ENCOUNTER 2023-11-03 16:04 | Observation (INO) | payer MEDICARE, SELFPAY ==
[2023-11-03] VITALS (17 sets, daily range): BP systolic 128–171; BP diastolic 77–116; PULSE 66–93; RESP 13–25; TEMP 36.6; O2SAT 95–100
--- NOTE | ~2023-11-03 | MR_ITS ---
MRI of the brain Clinical History: Decreased responsiveness Technique: Axial and sagittal T1-weighted images were acquired. These were followed by axial T2-weigh allie, diffusion weighted, gradient, and FLAIR images. Following intravenous administration of 16 cc Mu ltiHance gadolinium, T1-weighted fat-sat imaging was performed in the axial and coronal planes. COMPARISON: 04/13/2008 Findings: No significant signal abnormality seen in the brain parenchyma. No acute infarct, intracran ial hemorrhage, or mass lesion. Ventricles and subarachnoid spaces are unremarkable. Orbits are unremarkable. Paranasal sinuses and m astoid air cells are clear. Major intracranial flow voids are intact. Sagittal midline structures are intact. No abnormal postcontrast enhancement identified. IMPRESSION: No significant abnormality seen. Reviewed, dictated and finalized at location .
--- NOTE | ~2023-11-03 | XR_ITS ---
EXAMINATION: XR ribs RT 2V w CXR 2V DATE: 11/03/2023 17:15 INDICATION: Right rib pain post injury TECHNIQUE: PA and lateral views of the chest and 3 views of the right ribs were obtained. COMPARISON: Chest radiograph dated 02/12/2023 FINDINGS: No rib fractures identified. Mild biapical pleural-parenchymal scarring. Mild basilar atelectasis luzma ng side a small left pericardial fat pad. Unchanged minimal atelectasis/scarring at the right costoph renic angle. No new airspace opacities, pulmonary edema, pleural effusion or pneumothorax. Calcified right hilar and mediastinal lymph nodes consistent with old granulomatous disease. Heart size is normal. Cholecystectomy clips in right upper quadrant. Moderate thoracic spondylosis. IMPRESSION: 1. No rib fracture or acute cardiopulmonary disease. Reviewed, dictated and finalized at location B.
--- NOTE | ~2023-11-03 | CT_ITS ---
CT brain wo con Ordering provider: Radha Shelley PA-C History: 73 years Female with . transient alteration in awareness . Comparison: October 31, 2018 Technique: CT of the head without contrast. Radiation reduction technique utilized. DLP is 605.33 mGy-cm. FINDINGS: BRAIN PARENCHYMA AND CSF SPACES: No midline shift, mass effect or hemorrhage. The brain parenchyma a nd CSF spaces are otherwise normal. VISUALIZED PARANASAL SINUSES: Well aerated. MASTOIDS: Well aerated. BONES: The bones appear intact. SOFT TISSUES: Visualized nasopharynx is normal. Superficial soft tissues are normal. IMPRESSION: No acute intracranial findings. Reviewed, dictated and finalized at location A.
--- NOTE | ~2023-11-03 | CT_ITS ---
CTA brain carotid Ordering provider: Margarita Roper PA-C History: . tia vs syncope episode last night . Comparison: None. Technique: CT angiogram head and neck was performed following timed intravenous injection of contrast . Thin slice axial images and reformatted coronal images were obtained. Three dimensional reformatted images of the brain were also obtained using a [employer] workstation. Radiation reduction technique ut ilized. DLP is 888.38 mGy-cm. 100 mL Omnipaque 350 was given IV. FINDINGS: HEAD: --ANTERIOR AND MIDDLE CEREBRAL ARTERIES AND BRANCHES: Normal caliber and contour. --INTERNAL CAROTID ARTERIES: no significant stenosis. No occlusion. --BASILAR ARTERY AND BRANCHES: Normal caliber and contour. No atheromatous disease. --POSTERIOR CEREBRAL ARTERIES: Normal caliber and contour --POSTERIOR COMMUNICATING ARTERIES: Not visualized which is probably related to congenital absence or small size. --ANEURYSM: None visualized. --BRAIN: Please refer to report of CT head performed the same day. --BONES AND SUPERFICIAL SOFT TISSUES: Please refer to report of CT head performed the same day. --PARANASAL SINUSES AND MASTOIDS: Please refer to report of CT head done the same day. NECK: --RIGHT CERVICAL CAROTID SYSTEM: Normal caliber and contour. Percent stenosis per NASCET criteria is 0%. No carotid dissection. Otherwise, no significant atheromatous disease or stenosis of the cervica l carotid system. --LEFT CERVICAL CAROTID SYSTEM: Normal caliber and contour. Percent stenosis per NASCET criteria is 0%. No carotid dissection. Otherwise, no significant atheromatous disease or stenosis of the cervical carotid system. Tortuosity seen in the left internal carotid artery. --VERTEBRAL ARTERIES: Normal caliber and contour. --VISUALIZED AORTIC ARCH AND BRANCHING VESSELS: Mild atheromatous disease but no significant stenosis . --SOFT TISSUES: Normal. --CERVICAL SPINE: Age appropriate degenerative changes. IMPRESSION: 1. Normal CTA head and neck. Percent stenosis per NASCET criteria is 0%. Reviewed, dictated and finalized at location A.
--- NOTE | 2023-11-03 16:47 | ECG_ITS ---
Test Date: 2023-11-03 16:59:29 Measurements Intervals [place] Rate: 68 P: 58 LA: 142 QRS: 20 QRSD: 97 T: 47 QT: 384 QTc: 410 Interpretive Statements SINUS RHYTHM BASELINE ARTIFACT- I, II, III, AVR, AVL, AVF, V4-V6 NORMAL ECG No previous ECG available for comparison Electronically Signed On 11-03-2023 19:23:30 CDT by Dell Bales D.O.
--- NOTE | 2023-11-03 16:50 | ED.AMS ---
HPI - Altered Mental Status General Chief Complaint: Syncope <Radha Shelley PA-C - Last Filed: 11/04/23 09:36> Stated Complaint: syncopal episode <Radha Shelley PA-C - Last Filed: 11/04/23 09:36> Time Seen by Provider: 11/03/23 16:50 <Radha Shelley PA-C - Last Filed: 11/04/23 09:36> Focused HPI: This is a 73 year old female that presents to the ER for an episode of altered mental status. Reports last night she was having some drinks with friends. All the sudden was not responding to them and kept slumping in her chair. She finally came to a couple of minutes later. A bystander attempted the heimlich meneuver because they thought she was choking. Denies fever, vomiting, focal numbness or weakness. GENERAL: Well-appearing, well-nourished, and in no acute distress. HEAD: Normocephalic, atraumatic. CHEST: Clear to auscultation. ?No respiratory distress. HEART: Regular rate and rhythm.? NEURO: ?Alert and oriented x3. Patient screened in triage and initial orders placed.? ?Additional care and disposition to be based upon?diagnostic testing and treatment. <Radha Shelley PA-C - Last Filed: 11/04/23 09:36> Focused HPI: This is a 73 year old female that presents to the ER for an episode of altered mental status. Reports last night she was having some drinks with friends. All the sudden was not responding to them and kept slumping in her chair. She finally came to a couple of minutes later. A bystander attempted the Heimlich maneuver because they thought she was choking. Denies fever, vomiting, focal numbness or weakness. GENERAL: Well-appearing, well-nourished, and in no acute distress. HEAD: Normocephalic, atraumatic. CHEST: Clear to auscultation. ?No respiratory distress. HEART: Regular rate and rhythm.? NEURO: ?Alert and oriented x3. Patient screened in triage and initial orders placed.? ?Additional care and disposition to be based upon?diagnostic testing and treatment. <Margarita Roper PA-C - Last Filed: 11/03/23 21:58> Source: patient and family <Margarita Roper PA-C - Last Filed: 11/03/23 21:58> Mode of arrival: ambulatory <Margarita Roper PA-C - Last Filed: 11/03/23 21:58> Limitations: no limitations <Margarita Roper PA-C - Last Filed: 11/03/23 21:58> History of Present Illness HPI narrative: Agree with above HPI. Reports the last thing she remembered was talking with her friends. states she developed a glassy look across her eyes and was sitting there staring off. Was unresponsive. Slumping forward in her chair. Did not fully lose consciousness. States this occurred for 2-3 minutes before patient began to come around. Patient did not recall any of this. She does not feel that she was choking. Did not remember anyone performing the Heimlich on her. States she has felt lightheaded and somewhat off today. Denies focal weakness or numbness, slurred speech, vision changes, chest pain, shortness of breath. <Margarita Roper PA-C - Last Filed: 11/03/23 21:58> Related Data Home Medications: Home Medications Medication Instructions Recorded Confirmed cetirizine 10 mg capsule 10 mg PO DAILY PRN Sinus Symptoms 01/09/19 11/03/23 mecobalamin (vitamin B12) 1,000 1,000 mcg sublingual DAILY 01/09/19 11/03/23 mcg disintegrating tablet,sublingual cinnamon bark 500 mg capsule 1,000 mg PO DAILY 02/18/20 11/03/23 (Cinnamon) turmeric 400 mg capsule 450 mg PO DAILY 02/18/20 11/03/23 jfithhwh-ejrh-kpvb 8 mg-folic 400 1 tablet PO DAILY 08/05/20 11/03/23 mcg-K 50 mcg-lutein 300 mcg tablet (Centrum Silver Women) omega-3 fatty acids 1,000 mg 1,000 mg PO DAILY 08/05/20 11/03/23 capsule (Fish Oil Concentrate) biotin 1,000 mcg chewable tablet 1,000 mcg PO DAILY 09/16/20 11/03/23 diclofenac sodium 1 % topical gel 2 g topical QID PRN Mild Pain 06/16/22 11/03/23 (Voltaren Arthritis Pain) (Scale Score 1-4) flaxseed oil 1,000 mg capsule 1,000 mg
--- NOTE | 2023-11-03 17:03 | PC.NURSE ---
Patient to radiology in wheelchair.
[2023-11-03 17:09] LABS: Basophils Percent Auto 0.4 % (0.2-1.2); Eosinophils Absolute Auto 0.1 K/mm3 (0-0.3); Eosinophils Percent Auto 1.1 % (0-4.4); Hemoglobin 14.9 g/dL (12.0-15.0); Immature Granulocyte Absolute 0.01 K/mm3 (0.00-0.031); Immature Granulocyte Percent A 0.1 % (0-0.5); Lymphocytes Absolute Auto 1.35 K/mm3 (0.9-3.2); Lymphocytes Percent Auto 16.3 % (18.3-44.2); Mean Corpuscular HGB Conc 33.1 g/dl (32-36); Mean Corpuscular Hemoglobin 29.1 pg (26-34); Mean Corpuscular Volume 87.9 fl (80-100); Mean Platelet Volume 9.1 fl (7.4-10.4); Monocytes Absolute Auto 0.5 K/mm3 (0.1-0.6); Monocytes Percent Auto 5.4 % (2.6-8.5); Neutrophils Absolute Auto 6.4 K/mm3 (1.3-6.7); Neutrophils Percent Auto 76.7 % (45.5-73.1); Platelet Count Result 252 k/mm3 (150-375); Red Blood Count 5.12 M/mm3 (4.2-5.4); Red Cell Distribution Width 13.1 % (11.5-14.5); White Blood Count 8.3 K/mm3 (4.5-10.0)
[2023-11-03 17:10] LABS: Add Urine Microscopic? NO; Appearance Urine Clear (Clear); Bilirubin Urine Negative (Negative); Blood Urine Negative (Negative); Color Urine Yellow (Yellow); Glucose Urine UA Negative (Negative); Ketones Urine Negative (Negative); Leukocyte Esterase Ur Negative LEU/UL (Negative); Nitrate Urine Negative (Negative); Protein Urine Negative (Negative); Specific Grav Ur 1.012 (1.001-1.035); Urobilinogen Urine 0.2 mg/dL (<2.0); pH Urine 6.5 (5.0-9.0)
[2023-11-03 17:19] LABS: Ethanol < 10 mg/dL (<10)
[2023-11-03 17:20] LABS: Alanine Aminotransferase 36 U/L (6-35); Albumin Level 4.6 g/dL (3.5-5.1); Alkaline Phosphatase 56 U/L (38-126); Anion Gap 7 mmol/L (4-12); Aspartate Amino Transferase 38 U/L (14-36); Bilirubin,Total 0.6 mg/dL (0.2-1.3); Blood Urea Nitrogen 18 mg/dL (7-17); Calcium 9.4 mg/dL (8.4-10.2); Carbon Dioxide 32 mmol/L (22-30); Chloride 98 mmol/L (98-107); Estimated CRCL calculation 54 ml/min; Estimated Glomerular Filt Rate > 60; Glucose 95 mg/dL (65-110); INR 0.9; Potassium 3.6 mmol/L (3.4-5.0); Prothrombin Time 12.5 Seconds (11.1-14.7); Sodium 137 mmol/L (137-145)
[2023-11-03 17:26] LABS: Amphetamine Screen Urine Negative (Negative); Barbiturate Screen Urine Negative (Negative); Benzodiazepines Screen Urine Negative (Negative); Cannabinoid Screen Urine Negative (Negative); Cocaine Screen Urine Negative (Negative); Methadone Screen Urine Negative (Negative); Opiate Screen Urine Negative (Negative); Phencyclidine Screen Urine Negative (Negative)
[2023-11-03 17:34] LABS: Troponin I < 0.012 ng/mL (0.000-0.034)
[2023-11-03 18:13] LABS: Magnesium 2.3 mg/dL (1.6-2.3)
[2023-11-03] MEDS: SODIUM CHLORIDE 0.9% IV 1,000 ML 999 ML IV CONT (18:52)
--- NOTE | 2023-11-03 21:38 | PC.NURSE ---
pt provided with turkey sandwich, pretzels, and starry.
--- NOTE | 2023-11-03 21:48 | PM.IMHP ---
H&P: HPI History of Present Illness Date/Time: 11/03/23 21:48 Chief Complaint: altered mental status Narrative: This is a 73-year-old female with past medical history significant for anxiety and depression, asthma, hypertension, dysphagia, GERD, hypothyroidism, obstructive sleep apnea on CPAP. Patient was brought to the emergency room for evaluation after she had episode of altered mental status where she had a blank stare on her face this happened while out with her and friends sitting at the table at a restaurant someone thought that she might be choking and did Heimlich maneuver on her. Patient has no recollection of events but feels lightheaded. Patient has been her usual state of health prior to these. Denies any focal sensory motor deficit no vision changes no fevers no rigors no chills no nausea no vomiting no abdominal pain no chest pain no palpitations no leg pain no leg swelling. Preliminary workup has been essentially nonrevealing. Patient has been placed in observation for further evaluation management. Technique: CT of the head without contrast. Radiation reduction technique utilized. DLP is 605.33 mGy-cm. FINDINGS: BRAIN PARENCHYMA AND CSF SPACES: No midline shift, mass effect or hemorrhage. The brain parenchyma and CSF spaces are otherwise normal. VISUALIZED PARANASAL SINUSES: Well aerated. MASTOIDS: Well aerated. BONES: The bones appear intact. SOFT TISSUES: Visualized nasopharynx is normal. Superficial soft tissues are normal. IMPRESSION: No acute intracranial findings. EXAMINATION: XR ribs RT 2V w CXR 2V DATE: 11/03/2023 17:15 INDICATION: Right rib pain post injury TECHNIQUE: PA and lateral views of the chest and 3 views of the right ribs were obtained. COMPARISON: Chest radiograph dated 02/12/2023 FINDINGS: No rib fractures identified. Mild biapical pleural-parenchymal scarring. Mild basilar atelectasis along side a small left pericardial fat pad. Unchanged minimal atelectasis/scarring at the right costophrenic angle. No new airspace opacities, pulmonary edema, pleural effusion or pneumothorax. Calcified right hilar and mediastinal lymph nodes consistent with old granulomatous disease. Heart size is normal. Cholecystectomy clips in right upper quadrant. Moderate thoracic spondylosis. IMPRESSION: 1. No rib fracture or acute cardiopulmonary disease. CTA brain carotid Ordering provider: Margarita Roper PA-C History: . tia vs syncope episode last night . Comparison: None. Technique: CT angiogram head and neck was performed following timed intravenous injection of contrast. Thin slice axial images and reformatted coronal images were obtained. Three dimensional reformatted images of the brain were also obtained using a [employer] workstation. Radiation reduction technique utilized. DLP is 888.38 mGy-cm. 100 mL Omnipaque 350 was given IV. FINDINGS: HEAD: --ANTERIOR AND MIDDLE CEREBRAL ARTERIES AND BRANCHES: Normal caliber and contour. --INTERNAL CAROTID ARTERIES: no significant stenosis. No occlusion. --BASILAR ARTERY AND BRANCHES: Normal caliber and contour. No atheromatous disease. --POSTERIOR CEREBRAL ARTERIES: Normal caliber and contour --POSTERIOR COMMUNICATING ARTERIES: Not visualized which is probably related to congenital absence or small size. --ANEURYSM: None visualized. --BRAIN: Please refer to report of CT head performed the same day. --BONES AND SUPERFICIAL SOFT TISSUES: Please refer to report of CT head performed the same day. --PARANASAL SINUSES AND MASTOIDS: Please refer to report of CT head done the same day. NECK: --RIGHT CERVICAL CAROTID SYSTEM: Normal caliber and contour. Percent stenosis per NASCET criteria is 0%. No carotid dissection. Otherwise, no significant atheromatous disease or stenosis of the cervical carotid system. --LEFT CERVICAL CAROTID SYSTEM: Normal caliber and contour. Percent stenosis per NASCET criteria is 0%.
[2023-11-04] VITALS (13 sets, daily range): BP systolic 110–154; BP diastolic 63–76; PULSE 63–116; RESP 16–20; TEMP 36.1–36.6; O2SAT 93–99; BMI 30.7
--- NOTE | 2023-11-04 | ECHO_ITS ---
Patient Info Name: Yadira Medley Age: 73 years : 1950 Gender: Female Ht: 63 in Wt: 173 lbs BSA: 1.90 m2 Technical Quality: Fair Exam Date: 11/04/2023 11:00 AM Exam Location: Echo Lab Patient Status: Outpatient Admit Date: 11/03/2023 Staff Ordering Physician: Magnus Alan MD Aluminum Polisher: Ashely Sanz RDCS Attending Provider: Magnus Alan MD Referring Physician: Waqas DOTY; Exam Type: CA echo doppler color flow Study Info Indications - AMS Complete two-dimensional, color flow and Doppler transthoracic echocardiogram is performed. Summary 1. Complete two-dimensional, color flow and Doppler transthoracic echocardiogram is performed. 2. Left ventricular chamber dimension is normal. 3. Left ventricular systolic function is normal, estimated at 60-65%. 4. The left ventricular diastolic function is grade I diastolic dysfunction. 5. E/e' 9 is minimally elevated. 6. Left atrial chamber dimension is mildly enlarged. 7. There is mild mitral valve regurgitation. 8. There is mild tricuspid valve regurgitation. 9. No pulmonary hypertension, estimated pulmonary arterial systolic pressure is 28 mmHg. Left Ventricle E/e' 9 is minimally elevated. Left ventricular chamber dimension is normal. Left ventricular systolic function is normal, estimated at 60-65%. The left ventricular diastolic function is grade I diastolic dysfunction. Right Ventricle Right ventricular chamber dimension is normal. Right ventricular systolic function is normal. Left Atria Left atrial chamber dimension is mildly enlarged. Right Atria Right atrial chamber dimension is normal. Aortic Valve The aortic valve is trileaflet. There is no aortic valve stenosis. There is no aortic valve regurgitation. Pulmonic Valve There is no pulmonic regurgitation. Mitral Valve There is no mitral valve stenosis. There is mild mitral valve regurgitation. Tricuspid Valve There is mild tricuspid valve regurgitation. No pulmonary hypertension, estimated pulmonary arterial systolic pressure is 28 mmHg. Pericardium/Pleural There is no pericardial effusion. Inferior Vena Cava Normal inferior vena cava with >50% collapse upon inspiration consistent with normal right atrial pressure, 5 mmHg. Aorta The aortic root size at the sinus of Valsalva is normal. Left Ventricular Outflow Tract Name Value Normal LVOT 2D LVOT Diameter 1.9 cm LVOT Doppler LVOT Peak Gradient 6 mmHg LVOT Mean Gradient 3 mmHg LVOT VTI 25 cm LVOT VTI/AV VTI Ratio 0.9 LVOT Stroke Volume 69 ml LVOT CO 4.4 l/min LVOT CI 2.3 l/min/m2 Pulmonic Valve Name Value Normal PV Doppler PV Peak Gradient 5 mmHg PV Regurgitation Doppler
--- NOTE | 2023-11-04 08:19 | PM.IMPN ---
Progress Note: A&P Assessment and Plan (1) Episode of altered consciousness: Code(s): R40.4 - Transient alteration of awareness Status: Acute Assessment and Plan: placed in observation CT of the head reviewed CTA of head and neck reviewed MRI of the brain in a.m. Neurology consulted - will check b12, mg echo is ordered (2) Lightheadedness: Code(s): R42 - Dizziness and giddiness Status: Acute Assessment and Plan: supportive care (3) Anxiety and depression: Code(s): F41.9 - Anxiety disorder, unspecified; F32.A - Depression, unspecified Status: Acute (4) Asthma: Qualifiers: Asthma complication type: unspecified Asthma persistence: unspecified Asthma severity: unspecified severity Qualified Code(s): J45.909 - Unspecified asthma, uncomplicated Code(s): J45.909 - Unspecified asthma, uncomplicated Status: Acute (5) MELISSA on CPAP: Code(s): G47.33 - Obstructive sleep apnea (adult) (pediatric); Z99.89 - Dependence on other enabling machines and devices Status: Acute (6) GERD (gastroesophageal reflux disease): Qualifiers: Esophagitis presence: esophagitis presence not specified Qualified Code(s): K21.9 - Gastro-esophageal reflux disease without esophagitis Code(s): K21.9 - Gastro-esophageal reflux disease without esophagitis Status: Acute Plan chronic hld- elevated ldl 155, total cholesterol 259. she is on atorva- will need to get to high intensity dose Time Spent With Patient Time with patient: Greater than 35 minutes Subjective Date/time seen: 11/04/23 08:19 Interval history: altered mental status Narrative retrieved from H/P: This is a 73-year-old female with past medical history significant for anxiety and depression, asthma, hypertension, dysphagia, GERD, hypothyroidism, obstructive sleep apnea on CPAP. Patient was brought to the emergency room for evaluation after she had episode of altered mental status where she had a blank stare on her face this happened while out with her and friends sitting at the table at a restaurant someone thought that she might be choking and did Heimlich maneuver on her. Patient has no recollection of events but feels lightheaded. Patient has been her usual state of health prior to these. Denies any focal sensory motor deficit no vision changes no fevers no rigors no chills no nausea no vomiting no abdominal pain no chest pain no palpitations no leg pain no leg swelling. Preliminary workup has been essentially nonrevealing. Patient has been placed in observation for further evaluation management. CT head- negative Normal CTA head and neck. Percent stenosis per NASCET criteria is 0%. Neurology was consulted. Echo is completed. LDL elevated. TSH was checked- normal. Vit d- wnl Review of Systems Review of Systems: ROS unobtainable: Yes unobtainable due to mental status ( Patient has no recollection of events) Exam Narrative: patient is laying in a stretcher Const: General: comfortable, no acute distress, well developed, alert, awake, average body habitus and other ( well-appearing) Nutritional Appearance: average body habitus Orientation/consciousness: patient oriented x3 HENMT: Head: normal to inspection, normocephalic and atraumatic Ears: hearing grossly normal bilaterally Face/Nose/Sinus: normal facial exam Face and sinus: normal facial exam Eyes: General: appearance normal, both eyes and all related structures Pupils: Equal, round and reactive pupils present EOM: EOMs intact bilaterally Neck: Neck: full ROM, no lymphadenopathy and no JVD Thyroid: thyroid normal Lymphatic: no lymphadenopathy noted Resp: Effort & Inspection: normal respiratory effort and able to speak in complete sentences Auscultation: clear to auscultation bilaterally Cardio: Jugular venous distension: no JVD Rate: regular rate Rhythm: regular rhythm Heart sounds: S1 norm
[2023-11-04] MEDS: DULoxetine HCL 60 MG CAPSULE.DR PO (08:23)
[2023-11-04] MEDS: ATORVASTATIN 40 MG TABLET PO (08:23)
[2023-11-04] MEDS: FAMOTIDINE 20 MG TABLET PO (08:23)
[2023-11-04 13:33] LABS: Magnesium 2.2 mg/dL (1.6-2.3)
--- NOTE | 2023-11-04 15:40 | WPDNEUROLOGY ---
Neurology EEG Report General Information Date of Study: 11/04/23 TEST Electroencephalogram DIAGNOSIS syncope CONDITION OF RECORDING bedside recording EEG NUMBER [id number] CLINICAL HISTORY history of unresponsiveness for about a 1- 2 minutes. Patient was sleepy thereafter. EEG DESCRIPTION This is a 21 channel recording done by the patient's bedside using 10-20 system of electrode placement. During wakefulness the background activity consists of posterior dominant alpha rhythm at 10 hertz with an amplitude of 20-40 microvolts which appears well-formed and reactive to eye opening. Anteriorly low amplitude mixed frequency activity was seen. There is a good anteroposterior gradient. Hyperventilation or photic stimulation were not performed. Patient progressed to stage I and 2 sleep during which vertex waves sleep spindles and K complexes were seen. Muscle tension artifacts in frontal area appeared periodically. IMPRESSION This is a normal EEG obtained during awake and sleep states.
--- NOTE | 2023-11-04 15:44 | WPDNEURCNPN ---
Assessment and Plan Assessment and plan (1) Episode of altered consciousness: Code(s): R40.4 - Transient alteration of awareness Status: Acute Plan The differential diagnosis of her condition would include neurologic or cardiac events. This is a single spell prior to that she never had any spell. the patient does not have any significant history of cardiac disease or other medical problems and has been in good health. The fact that she want to go to sleep for a long time may go in favor of seizure disorder however the fact that she became pale and had bluish lips would be suggestive of lack of perfusion to the brain and has vasovagal attack or cardiac arrhythmia need to be considered in the differential diagnosis. The cardiac monitoring at this time. I have reviewed the MRI of the brain, CT angiogram of the head and neck and a EEG all of which were within acceptable normal limits. I explained to her that although the possibility of seizure disorder though it be ruled out nevertheless based upon the evidence I would not recommend starting her empirically on seizure medication. However I will check her lipid profile and possibly treated with aspirin and a statin is as he would also like to have some protection. I would suggest a prolonged cardiac monitoring will be considered. Echocardiogram was done which also did not show any significant abnormalities. Feel free to call me after you chance to look at her from cardiac standpoint and all the investigations. Consult date: 11/04/23 HPI: Yadira Medley is a 73 year old female With history of episode where she was with her and friend in a restaurant having a drink and suddenly she became unresponsive. Her face became pale and lips became blue and she was unresponsive for. Time. Somewhat in the rest from thought that she was having a choking spell and came by to give her a Heimlich maneuver. This patient came around within 2 minutes. Thereafter she did not want to go to the hospital but went home and slept for 10 hours. She never had any symptoms such as this in the past or after admission. She does not recall having any warning. When she came back to her senses she appeared to have some slurring of the words or speech. She denies any other pertinent neurologic symptoms. Review of Systems Constitutional: Constitutional: Denies chills, Denies fever(s) and Denies weight loss Eyes: Eyes: Denies diplopia and Denies loss of vision ENT: Denies dizziness, Denies hearing loss and Denies tinnitus Cardiovascular: Cardiovascular: Denies chest pain, Denies syncope and Denies dyspnea Respiratory: Respiratory: Denies cough, Denies dyspnea and Denies wheezing Gastrointestinal: Gastrointestinal: Denies abdominal pain, Denies change in bowel habits and Denies vomiting Genitourinary: Genitourinary: Denies urinary incontinence Musculoskeletal: Musculoskeletal: Denies arthralgias and Denies joint swelling Integumentary/Breasts: Skin/Breast: Denies new lesions and Denies rash Neurologic: Reports as per HPI, Denies dizziness, Denies syncope and Denies loss of vision Psychiatric: Psychiatric: Denies anxiety and Denies depression Endocrine: Endocrine: Denies cold intolerance and Denies heat intolerance Hematologic/Lymphatic: Hematologic/Lymphatic: Denies easy bleeding and Denies easy bruising Allergic/Immunologic: Allergic/Immunologic: Denies no additional allergic/immunologic complaints and Denies wheezing PMFSH Past Medical History Medical History Actinic keratosis Anxiety and depression Asthma Benign essential hypertension BMI 31.0-31.9,adult BMI 32.0-32.9,adult BMI 33.0-33.9,adult BMI 34.0-34.9,adult Chronic cough Dysphagia Elevated LFTs Encounter for Medicare annual wellness exam Encounter for Papanicolaou smear for cervical cancer screening Encounter for routine adult health examination without abnormal
[2023-11-04 19:53] LABS: Cholesterol 186 mg/dL (0-200); HDL Direct 74 mg/dL; Triglycerides 135 mg/dL (<150)
[2023-11-04 20:05] LABS: LDL Cholesterol Direct 70 mg/dL
[2023-11-05] VITALS: PULSE 66
[2023-11-05 04:00] VITALS: PULSE 78
[2023-11-05 05:03] VITALS: BP 111/58; PULSE 71; RESP 17; TEMP 36.7; O2SAT 96
[2023-11-05] MEDS: LEVOTHYROXINE SODIUM 112 MCG TABLET BY MOUTH (05:31)
--- NOTE | 2023-11-05 07:45 | PM.IMPN ---
Progress Note: A&P Assessment and Plan (1) Episode of altered consciousness: Code(s): R40.4 - Transient alteration of awareness Status: Acute Assessment and Plan: placed in observation CT of the head reviewed CTA of head and neck reviewed MRI of the brain in a.m. Neurology consulted - will check b12, mg echo is ordered -so far no acute neurological findings, TSH normal, no electrolytes abnormalities - cardiac arthythmia cannot be excluded - will benefit form 30 day Holter monitor (2) Lightheadedness: Code(s): R42 - Dizziness and giddiness Status: Acute Assessment and Plan: supportive care see above (3) Anxiety and depression: Code(s): F41.9 - Anxiety disorder, unspecified; F32.A - Depression, unspecified Status: Acute (4) Asthma: Qualifiers: Asthma complication type: unspecified Asthma persistence: unspecified Asthma severity: unspecified severity Qualified Code(s): J45.909 - Unspecified asthma, uncomplicated Code(s): J45.909 - Unspecified asthma, uncomplicated Status: Acute (5) MELISSA on CPAP: Code(s): G47.33 - Obstructive sleep apnea (adult) (pediatric); Z99.89 - Dependence on other enabling machines and devices Status: Acute (6) GERD (gastroesophageal reflux disease): Qualifiers: Esophagitis presence: esophagitis presence not specified Qualified Code(s): K21.9 - Gastro-esophageal reflux disease without esophagitis Code(s): K21.9 - Gastro-esophageal reflux disease without esophagitis Status: Acute Plan chronic hld- elevated ldl 155, total cholesterol 259. she is on atorva- will need to get to high intensity dose Time Spent With Patient Time with patient: Greater than 35 minutes Subjective Date/time seen: 11/05/23 07:45 Interval history: altered mental status Narrative retrieved from H/P: This is a 73-year-old female with past medical history significant for anxiety and depression, asthma, hypertension, dysphagia, GERD, hypothyroidism, obstructive sleep apnea on CPAP. Patient was brought to the emergency room for evaluation after she had episode of altered mental status where she had a blank stare on her face this happened while out with her and friends sitting at the table at a restaurant someone thought that she might be choking and did Heimlich maneuver on her. Patient has no recollection of events but feels lightheaded. Patient has been her usual state of health prior to these. Denies any focal sensory motor deficit no vision changes no fevers no rigors no chills no nausea no vomiting no abdominal pain no chest pain no palpitations no leg pain no leg swelling. Preliminary workup has been essentially nonrevealing. Patient has been placed in observation for further evaluation management. CT head- negative Normal CTA head and neck. Percent stenosis per NASCET criteria is 0%. Neurology was consulted. Echo is completed. LDL elevated. TSH was checked- normal. Vit d- wnl 11/04- pt is seen and examined. So far, no acute neurological finding. Review of Systems Review of Systems: ROS unobtainable: Yes unobtainable due to mental status ( Patient has no recollection of events) Exam Narrative: patient is laying in a stretcher Const: General: comfortable, no acute distress, well developed, alert, awake, average body habitus and other ( well-appearing) Nutritional Appearance: average body habitus Orientation/consciousness: patient oriented x3 HENMT: Head: normal to inspection, normocephalic and atraumatic Ears: hearing grossly normal bilaterally Face/Nose/Sinus: normal facial exam Face and sinus: normal facial exam Eyes: General: appearance normal, both eyes and all related structures Pupils: Equal, round and reactive pupils present EOM: EOMs intact bilaterally Neck: Neck: full ROM, no lymphadenopathy and no JVD Thyroid: thyroid normal Lymphatic: no lymphadenopathy noted Resp:
[2023-11-05 08:00] VITALS: PULSE 70
[2023-11-05] MEDS: ASPIRIN 81 MG ENTERIC TABLET PO (08:22)
[2023-11-05] MEDS: DULoxetine HCL 60 MG CAPSULE.DR PO (08:22)
[2023-11-05] MEDS: ATORVASTATIN 40 MG TABLET PO (08:22)
[2023-11-05] MEDS: FAMOTIDINE 20 MG TABLET PO (08:22)
[2023-11-05 12:00] VITALS: PULSE 78
--- NOTE | 2023-11-05 14:16 | PM.DS ---
DS: Admitting Diagnosis Discharge Date 11/04 Admitting Diagnosis altered mental status for about 1 min DS: Discharge Diagnosis Discharge Diagnosis (1) Episode of altered consciousness: Code(s): R40.4 - Transient alteration of awareness Status: Acute Assessment and Plan: placed in observation CT of the head reviewed CTA of head and neck reviewed MRI of the brain in a.m. Neurology consulted - will check b12, mg echo is ordered -so far no acute neurological findings, TSH normal, no electrolytes abnormalities - cardiac arthythmia cannot be excluded - will benefit form 30 day Holter monitor-will f/u with pcp on wednesday (2) Lightheadedness: Code(s): R42 - Dizziness and giddiness Status: Acute Assessment and Plan: supportive care see above (3) Anxiety and depression: Code(s): F41.9 - Anxiety disorder, unspecified; F32.A - Depression, unspecified Status: Acute (4) Asthma: Qualifiers: Asthma severity: unspecified severity Asthma persistence: unspecified Asthma complication type: unspecified Qualified Code(s): J45.909 - Unspecified asthma, uncomplicated Code(s): J45.909 - Unspecified asthma, uncomplicated Status: Acute (5) MELISSA on CPAP: Code(s): G47.33 - Obstructive sleep apnea (adult) (pediatric); Z99.89 - Dependence on other enabling machines and devices Status: Acute (6) GERD (gastroesophageal reflux disease): Qualifiers: Esophagitis presence: esophagitis presence not specified Qualified Code(s): K21.9 - Gastro-esophageal reflux disease without esophagitis Code(s): K21.9 - Gastro-esophageal reflux disease without esophagitis Status: Acute Plan final dx: Transient alteration of awareness chronic hld- elevated ldl 155, total cholesterol 259. she is on atorva- will need to get to high intensity dose DS: Summary Hospital Course Hospital Course: Interval history: altered mental status Narrative retrieved from H/P: This is a 73-year-old female with past medical history significant for anxiety and depression, asthma, hypertension, dysphagia, GERD, hypothyroidism, obstructive sleep apnea on CPAP. Patient was brought to the emergency room for evaluation after she had episode of altered mental status where she had a blank stare on her face this happened while out with her and friends sitting at the table at a restaurant someone thought that she might be choking and did Heimlich maneuver on her. Patient has no recollection of events but feels lightheaded. Patient has been her usual state of health prior to these. Denies any focal sensory motor deficit no vision changes no fevers no rigors no chills no nausea no vomiting no abdominal pain no chest pain no palpitations no leg pain no leg swelling. Preliminary workup has been essentially nonrevealing. Patient has been placed in observation for further evaluation management. CT head- negative Normal CTA head and neck. Percent stenosis per NASCET criteria is 0%. Neurology was consulted. Echo is completed. LDL elevated. TSH was checked- normal. Vit d- wnl 11/04- pt is seen and examined. So far, no acute neurological finding Status at Discharge Functional status at discharge: independent ambulation Overall status at discharge: patient is back to baseline Time Spent with Patient Time attestation: Total time spent providing and/or coordinating discharge services: Time spent: Greater than 30 minutes Exam Narrative: alert, oriented Const: General: comfortable, no acute distress, well developed, alert, awake, average body habitus and other ( well-appearing) Nutritional Appearance: average body habitus Orientation/consciousness: patient oriented x3 HENMT: Head: normal to inspection, normocephalic and atraumatic Ears: hearing grossly normal bilaterally Face/Nose/Sinus: normal facial exam Face and sinus: normal facial exam Eyes: General: appearance
== END 2023-11-05 15:30 | disposition home or self-care (01) ==
LOC: ANHED 21:15 → ANH2MED 22:19
PROVIDERS: Nurse Practitioner; Physician Assistant; Psychiatry & Neurology Neurology; Admitting Provider Internal Medicine; Emergency Provider Physician Assistant; PCP Internal Medicine; Visit Provider Internal Medicine
DX: R40.4 Transient alteration of awareness (principal); R42 Dizziness and giddiness; I10 Essential (primary) hypertension; J45.909 Unspecified asthma, uncomplicated; F41.8 Other specified anxiety disorders; K21.9 Gastro-esophageal reflux disease without esophagitis; I08.1 Rheumatic disorders of both mitral and tricuspid valves; E03.9 Hypothyroidism, unspecified; E78.2 Mixed hyperlipidemia; G47.33 Obstructive sleep apnea (adult) (pediatric); R73.03 Prediabetes; Z79.51 Long term (current) use of inhaled steroids; Z79.899 Other long term (current) drug therapy
CPT/HCPCS: 36415; 70450; 70496; 70498; 70553; 71046; 71100; 80053; 80061; 80307; 81003; 82607; 83735; 84484; 85025; 85610; 85730; 93005; 93306; 95816; 96360; 99285; A9270; A9577; G0378; J7030; Q9967

== ENCOUNTER 2023-11-18 07:36 | Outpatient (CLI) | payer MEDICARE, SELFPAY ==
--- NOTE | ~2023-11-18 | US_ITS ---
EXAMINATION: US abdomen limited DATE: 11/18/2023 10:19 INDICATION: R79.89 - Other specified abnormal findings of blood chemi... TECHNIQUE: Multiple grayscale and Doppler ultrasound images of limited portions of the abdomen were o btained. COMPARISON: CT abdomen pelvis 02/03/2017. FINDINGS: The visualized portions of the pancreas are normal. The liver is normal with normal echogen icity and echotexture. No surface nodularity. Normal hepatopetal flow in the main portal vein. The ga llbladder is surgically absent. The common bile duct measures 4 mm. There was no sonographic Machuca s ign. IMPRESSION: Status post cholecystectomy. Otherwise normal right upper quadrant ultrasound findings. Reviewed, dictated and finalized at location K. IMPRESSION: Status post cholecystectomy. Otherwise normal right upper quadrant ultrasound f indings.
--- NOTE | ~2023-11-18 | XR_ITS ---
MODIFIED ESOPHAGRAM HISTORY: Dysphagia. TECHNIQUE: Modified barium esophagram was performed on 11/18/2023. I administered fluoroscopy and perf ormed the exam with speech pathologist. Patient was seated for lateral fluoroscopic imaging for stephanie stion of thin liquids, pudding, solids and quantified amounts, followed by thin liquids in uncontroll ed amounts. This was recorded on tape. A single fluoroscopic spot image was also recorded. The DAP fo r this procedure was 0.688 Gycm2. The amount of fluoroscopy time used during this procedure was 0.9 m inutes. FINDINGS: Oral stage: Adequate function. Pharyngeal stage: Adequate function. Cervical/esophageal stage: Adequate function. IMPRESSION: Patient tolerated regular consistency oral feedings in the upright position. Please ann elate with speech pathologist findings and specific feeding recommendations. Reviewed, dictated and finalized at location A. IMPRESSION: Patient tolerated regular consistency oral feedings in the upright position. Please correlate with speech pathologist findings and specific feedi ng recommendations.
--- NOTE | 2023-11-18 10:15 | REHSTMBS ---
Assessment and note entered by Rica Kumar, MICA MINER Modified Barium Swallow Evaluation Feeding Type Recommended Oral Food Consistency Regular, Level 7 Liquid Consistency Thin (0) ST Clinical Summary MODIFIED BARIUM SWALLOW STUDY This patient was seen for a Modified Barium Swallow study at the request of her physician. Patient reports a history of post nasal drip. 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 She stated several weeks ago, she was out at a speakeasy and had a cocktail and a glass of water and when she took a sip from the water, her said, she turned white and stopped breathing until someone gave her the Heimlich maneuver and she returned to normal breathing. She stated she was admitted to the hospital for four days, and underwent tests which were inconclusive. Today, patient stood for this test in the lateral position and viewed to the level of C5/C6. She was presented with thin liquid contrast medium per cup and also per straw, pudding mixed with semi- solid contrast medium, and a large piece of marysol cracker and several pieces of fruit cocktail, both coated with the semi-solid mixture. Patient elicited no signs of penetration or aspiration and no significant pharyngeal residue. Results suggest this patient's swallowing skills were within normal limits. No abnormal epiglottal findings. Patient may remain on a Regular Diet with Regular Liquids. No further Speech Therapy is indicated. Thank you for this referral.
== END 2023-11-18 07:37 | disposition home or self-care (01) ==
PROVIDERS: PCP Internal Medicine; Visit Provider Internal Medicine
DX: R13.10 Dysphagia, unspecified (principal); R05.3 Chronic cough; R55 Syncope and collapse; R79.89 Other specified abnormal findings of blood chemistry; Z90.49 Acquired absence of other specified parts of digestive tract
CPT/HCPCS: 76705; 92611

== ENCOUNTER 2024-03-29 12:52 | Emergency (ER) | payer MEDICARE, SELFPAY ==
--- NOTE | ~2024-03-29 | XR_ITS ---
EXAMINATION: XR chest 2V DATE: 03/29/2024 14:30 INDICATION: Cough TECHNIQUE: PA and lateral views of the chest were obtained. COMPARISON: Chest radiograph date FINDINGS: Chronic mild streaky opacities at the bilateral lower lung zones consistent with atelectasis/scarring . No pulmonary edema, pleural effusion or pneumothorax. Heart size is normal. Calcified right hilar a nd mediastinal lymph nodes consistent with old granulomatous disease. Moderate thoracic spondylosis w ith chronic mild anterior wedging of a couple levels in the mid thoracic spine. Cholecystectomy clips in right upper quadrant. IMPRESSION: 1. Chronic streaky atelectasis/scarring at the lateral lower lung zones. Reviewed, dictated and finalized at location [facility]
[2024-03-29 13:27] VITALS: BP 127/68; PULSE 82; RESP 18; TEMP 36.8; O2SAT 95
--- OUTSIDE RECORDS SUMMARY | 2024-03-29 13:47 | XMS_ITS | Data Portability ---
Author Organization [facility] Address [address] [place] [address] Care Team Providers Care Unit Assistant Name Role Phone HANNA CHEUNG Primary Care Provider Unavailab le Assessment No assessment recorded. Plan of Treatment Reminders Order Date Submit Date Provider Last Modified By Organization Details Last Modified Time Details Appointments ANY 15 2024 08:15A M NICA Floyd Not available Not available Not available Lab CBC w/ auto diff 2023 025 [email or web address] [facility], [address], [facility] [address], [place], [address], 01/12/2024 09:57:21 hepatic function panel, serum 2023 025 [email or web address] [facility], [address], [facility] [address], [place], [address], 01/12/2024 09:57:22 BMP, serum or plasma 2023 025 [email or web address] [facility], [address], [facility] [address], [place], [address], 01/12/2024 09:57:22 TSH + free T4, serum 2023 025 [email or web address] [facility], [address], [facility] [address], [place], [address], 01/12/2024 09:57:22 lipid panel, serum 2023 025 [email or web address] [facility], [address], [address] [address], [place], [address], 01/12/2024 09:57:22 Referral None recorded. Procedures None recorded. Surgeries None recorded. Imaging MAMMO, screening , digital, bilateral 2023 024 [facility] (Mammography) , [address], [place], [address], 01/12/2024 13:50:41 Medication Orders None recorded. Patient TargetsNo targets recorded. Patient Instructions Encounter Date Encounter Id Patient Instructions Last Modified By Organization Details Last Modified Time 01/12/2024 [id number] A healthy lifestyle: care instructions [email or web address] Not available 01/12/2024 09:57:21 Reason for Referral None Reported. Problems Name Problem SNOMED Code Status Onset Date Resolution Date Notes Provider Name and Address Organization Details Recorded Time Gastroesophage al reflux disease without esophagitis 136664817 Active 2023 NICA Floyd Attn: [address] [place], [address], [facility] 4 09:40:04 Hypothyroidism 43372757 Active 2023 NICA Floyd Attn: [address] [place], [address], [place] [facility] 4 09:40:04 Hyperlipidemia 46338233 Active 2023 NICA Floyd Attn: [address] [place], [address], [place] [facility] 4 09:40:05 Body mass index 30+ - obesity 965041119 Active 2023 NICA Floyd Attn: Hill g,[address] [place], [address], [place] [facility] 4 09:40:08 Obesity 128981356 Active 2023 NICA Floyd Attn: [address] [place], [address], [place] [facility] 4 09:40:09 Benign essential hypertension 0110833 Active 2023 NICA Floyd Attn: [address] [facility], [place], [address], [facility] 4 09:40:11 Long-term drug therapy Active 2023 NICA Floyd Attn: [address] mir[address] [facility], [place], [address], [place] [facility] 4 09:40:21 Asthma 075595853 Active 2023 NICA Floyd Attn: [address] [facility], [place], [address], [facility] 4 13:21:29 Problem Notes None recorded. Procedures Surgical History Date Name Laterality Status Provider Name and Address Organization Details Recorded Time cholecystectomy completed Leonel Leblanc [place] [facility] 01/12/2024 09:19:40 Knee Surgery completed Leonel Leblanc [place] [facility] 01/12/2024 09:19:59 Imaging Results None recorded. Procedure Notes None recorded. Medical Equipment None Reported. Allergies No known drug allergies Medications Name Sig Start Date Stop Date Status Note LastModified by Organization Details LastModified Time atorvastati n 40 mg tablet Take 1 tablet every day by oral route for 90 days. active Not Available Not Available No t Available albuterol sulfate 2.5 mg/3 mL (0.083 %) solution for nebulizatio n INHALE 1 VIAL VIA NEBULIZER EVERY 4 TO 6 HOURS VIA NEBULIZER NEEDED FOR SHORTNESS OF BREATH OR WHEEZING active Not Available Not Available No t Available azithromyci n 250 mg tablet 01/11 completed Not Available Not Available Not Available benzonatate 200 mg capsule TAKE 1 CAPSULE BY MOUTH THREE TIMES DAILY NEEDED FOR COUGH 01/11 completed Not Available Not Available Not Available prednisone 20 mg tablet TAKE 1 TABLET BY MOUTH DAILY 01/11 completed Not Available Not Available Not Available omeprazole 20 mg capsule,del ayed release 01/11 completed Not Available Not Available Not Available Pepcid 20 mg tablet Take 1 tablet twice a day by oral route. active Not Available Not Available No t Available levofloxaci n 750 mg tablet TAKE 1 TABLET BY MOUTH DAILY FOR 5 DAYS 01/11 completed Not Available Not Available Not Available albuterol sulfate HFA 90 mcg/actuati on aerosol inhaler INHALE 1 PUFF BY MOUTH EVERY 4 HOURS NEEDED FOR SHORTNESS OF BREATH AND/OR WHEEZING active Not Available Not Available No t Available levothyroxi ne 112 mcg tablet Take 1 tablet every day by oral route for 100 days. active Not Available Not Available No t Available duloxetine 30 mg capsule,del ayed release TAKE 1 CAPSULE BY MOUTH ONCE DAILY FOR 7 DAYS 01/11 completed Not Available Not Available Not Available duloxetine 60 mg capsule,del ayed release TAKE 1 CAPSULE BY MOUTH DAILY. START TAKING 1 CAPSULE BY MOUTH ROUTE AFTER THE INITIAL 7 DAYS OF 30 MG DULOXETIN E active Not Available Not Available No t Available hydrochloro thiazide 12.5 mg tablet Take 1 tablet every day by oral route for 100 days. active Not Available Not Available No t Available Trelegy Ellipta 100 mcg-62.5 mcg-25 mcg powder for inhalation Inhale 1 puff every day by inhalatio n route. active Not Available Not Available No t Available Vitals Date Recorded Body weight Respiratory rate Body mass index (BMI) Body height Oxygen saturation Oxygen saturation in Arterial blood by Pulse oximetry Heart rate Systolic blood pressure Diastolic blood pressure Provider Name and Address Organization Details Last Updated DateTime 4 50582.2 6 g 18 /min 31.2 kg/m2 160.02 cm 98 % 98 % 78 /min 126 mm[Hg] 82 mm[Hg] Leonel Leblanc MA [facility] 4 09:24:00 Date Recorded Systolic blood pressure Diastolic blood pressure Provider Name and Address Organization Details Last Updated DateTime 01/12/2024 140 mm[Hg] 80 mm[Hg] NICA Floyd Attn: Accounting,[address] [facility], [place], [address], [facility] 01/12/2024 10:00:47 Social History Question Answer Notes LastModified by Organizat ion Details LastModified Time Tobacco Smoking Status Never Smoker Leonel Leblanc MA null, [facility] 01/12/2024 09:20:33 Do You Have An Advance Directive? Yes Information not available 01/12/2024 What Is Your Level Of Alcohol Consumption? Occasional Information not available 01/12/2024 Are You Blind Or Do You Have Difficulty Seeing? No Glasses Information not available 01/12/2024 What Is Your Level Of Caffeine Consumption? Occasional Information not available 01/12/2024 In The 14 Days Before Symptom Onset, Have You Had Close Contact With A Laboratory-confir med COVID-19 While That Case Was Ill? No Information not available 01/12/2024 In The 14 Days Before Symptom Onset, Have You Had Close Contact With A Person Who Is Under Investigation For COVID-19 While That Person Was Ill? No Information not available 01/12/2024 Have You Been To An Area Known To Be High Risk For COVID-19? No Information not available 01/12/2024 Are You Currently Employed? Yes Information not available 01/12/2024 Are You Deaf Or Do You Have Serious Difficulty Hearing? No Information not available 01/12/2024 What Type Of Diet Are You Following? REGULAR Information not available 01/12/2024 Are There Any Guns Present In Your Home? No Information not available 01/12/2024 What Was The Date Of Your Most Recent Tobacco Screening? 01/12/2024 Information not available 01/12/2024 What Is Your Relationship Status? Information not available 01/12/2024 Do You Use Your Seat Belt Or Car Seat Routinely? Yes Information not available 01/12/2024 Do You Have Smoke And Carbon Monoxide Detectors In Your Home? Yes Information not available 01/12/2024 Do You Feel Stressed (tense, Restless, Nervous, Or Anxious, Or Unable To Sleep At Night)? [id number] Information not available 01/12/2024 Do You Use Any Illicit Or Recreational Drugs? No Information not available 01/12/2024 Do You Use Sunscreen Routinely? No Information not available 01/12/2024 Has Tobacco Cessation Counseling Been Provided? No Information not available 01/12/2024 Do You Or Have You Ever Used Any Other Forms Of Tobacco Or Nicotine? No Information not available 01/12/2024 Sex: Female Functional Status Question Answer Note LastModified by Organizat ion Details LastModified Time Are you able to care for yourself? Yes Information not available 01/12/2024 What is your exercise level? Occasional Information not available 01/12/2024 Mental Status None recorded. Family History Relationship Description Onset Age of this Age Resolved Age Notes LastModified by Organization Details LastModified Time Father Heart disease [email or web address] Not available 2023 09:20:07 Father Hypercholest erolemia [email or web address] Not available 2023 09:36:02 Mother Hypertensive disorder [email or web address] Not available 2023 09:35:57 Medical History Condition Response Coronary Artery Disease N Other N High Blood Pressure N Atrial Fibrillation N Kidney or Bladder Problems N Thyroid Problems N Depression N COPD N Blood Clots N GI Problems N Have you had a mammogram in the last yea r? N Skin Problems N Anemia N Heart Attack (ME) N Anxiety Disorder Y Diabetes N Muscle, Joint, or Bone Problems N Seizures/Epilepsy N Have you had a colonoscopy in the last 1 0 years? N Cancer N Stroke N Asthma N Allergies N Have you had a PSA blood test in the las t year? N High Cholesterol N Hepatitis N Liver Disease N Headaches N Heart Failure N Osteoporosis N Gynecological HistoryNo gynecological history recorded. Obstetrics History GPAL:G 0 P 0 0 0 0 Immunizations Vaccine Type Date Status Note Provider Nam e and Address Organization Details Recorded Time Influenza, split virus, quadrivalent, preservative 9 completed Leonel Lebl[place], [place] [facility] 01/12/2024 09:15:47 Influenza, adjuvanted, trivalent, PF 8 completed Leonel Lebl[place] [facility] 01/12/2024 09:15:47 zoster recombinant 0 completed Leonel Lebl[place] [facility] 01/12/2024 09:15:47 zoster recombinant 10/14/201 9 completed Leonel Lebl[place] [facility] 01/12/2024 09:15:47 Influenza, high-dose, quadrivalent, PF 3 completed Leonel Lebl[place] [facility] 01/12/2024 09:15:47 Influenza, high-dose, quadrivalent, PF 1 completed Leonel Lebl[place] [facility] 01/12/2024 09:15:47 Influenza, high-dose, quadrivalent, PF 2 completed Leonel [place] [facility] 01/12/2024 09:15:47 Influenza, adjuvanted, quadrivalent, PF 0 completed Leonel [place] [facility] 01/12/2024 09:15:47 COVID-19, mRNA, LNP-S, PF, 100 mcg/0.5mL dose or 50 mcg/0.25mL dose 1 completed Leonel [place]bl[place] [facility] 01/12/2024 09:15:47 COVID-19, mRNA, LNP-S, PF, 100 mcg/0.5mL dose or 50 mcg/0.25mL dose 1 completed Leonel [place]bl[place] [facility] 01/12/2024 09:15:47 COVID-19, mRNA, LNP-S, PF, 100 mcg/0.5mL dose or 50 mcg/0.25mL dose 2 completed Leonel [place]bl[place] [facility] 01/12/2024 09:15:47 COVID-19, mRNA, LNP-S, PF, 100 mcg/0.5mL dose or 50 mcg/0.25mL dose 1 completed Leonel [place]bl[place] [facility] 01/12/2024 09:15:47 COVID-19, mRNA, LNP-S, bivalent, PF, 50 mcg/0.5 mL or 25mcg/0.25 mL dose 2 completed Leonel [place] [facility] 01/12/2024 09:15:47 COVID-19, mRNA, LNP-S, PF, pop-sucrose, 30 mcg/0.3 mL 3 [place] SH[place] [facility] 01/12/2024 09:15:47 COVID-19, mRNA, LNP-S, PF, 50 mcg/0.5 mL 4 [place] [facility] 01/12/2024 09:15:47 pneumococcal polysaccharide PPV23 1 [place] [facility] 01/12/2024 09:15:47 influenza, unspecified formulation 4 completed [place] [facility] 01/12/2024 09:15:47 Pneumococcal conjugate PCV 13 7 [place] [facility] 01/12/2024 09:15:47 Influenza, high-dose, trivalent, PF 7 [place] [facility] 01/12/2024 09:15:47 Influenza, high-dose, trivalent, PF 4 [place] [facility] 01/12/2024 09:15:47 Influenza, split virus, trivalent, preservative 6 completed [place] [facility] 01/12/2024 09:15:47 Influenza, split virus, trivalent, preservative 4 completed [place] [facility] 01/12/2024 09:15:47 Influenza, split virus, trivalent, preservative 3 completed [place] [facility] 01/12/2024 09:15:47 Influenza, split virus, trivalent, PF 5 [place] [facility] 01/12/2024 09:15:47 Influenza, split virus, trivalent, PF 6 completed Leonel Leblanc [place], [place] [facility] 01/12/2024 09:15:47 Past Encounters Encounter ID Performer Location Encounter Start Date Encounter Closed Date Diagnosis/Indication Diagnosis SNOMED-CT Code Diagnosis ICD10 Code Diagnosis Note [id number] NICA Floyd [facility] [place] [address] [place] [address] 01/12/2024 08:55:47 01/12/2024 13:45:33 Body mass index 30+ - obesity 218765181 Z68.31 BMI is 31.2 Obesity 751627905 E66.9 discussed healthy diet, exercise, controllin g carbohydra miya and added sugars in the diet Screening mammography 24 863244 Z12.31 Annual mammogram is ordered Hyperlipidemia 55586370 E78.5 For hyperlipid emia we will continue atorvastat in 40 mg daily and check an updated fasting lipid panel in April Hypothyroidism 14985073 E03.9 Repeat thyroid function panel in April and continue levothyrox ine 112 mcg daily Benign ess ential hypertension 7877803 I10 Blood pressure is running borderline at 140/80. Continue hydrochlor othiazide 12.5 mg daily. We will monitor this closely and have patient to record home readings and if she finds that her blood pressure consistent ly is in the 140-150 or above range she will reach out to the provider via the portal. Gastroesop hageal reflux disease without esophagitis 339543359 K21.9 For acid reflux patient is currently taking Pepcid 20 mg twice daily Long-term drug therapy 384194063 Z79.891 Routine labs ordered for April Health Concerns Section Related Observation LastModified by Organization Detai ls LastModified Time None Recorded Concern Status LastModified by Organization Details LastModified Time None Recorded Advance Directives Directive Y: Payers Encounter Date Sequence Insurance Name Policy Number Policy Tim Covered Member ID Tim Member ID Guarantor Name 01/12/2024 1 [facility] (MEDICARE REPLACEMENT/A DVANTAGE - HMO) [id number] Yadira Briddell [id number] Yadira Briddell 01/12/2024 2 [facility] (MEDICARE REPLACEMENT/A DVANTAGE - HMO) [id number] Yadira Briddell [id number] Yadira Briddell Notes Date Note Type Note Provider Name and Address Organization Details Recorded Time 01/12/20 24 text/ht ml Anxiety/DepressionReported bypatient.Notes:For anxiety and depression management she is taking duloxetine 60 mg daily.HyperlipidemiaReported bypatient.Notes:Patient is taking atorvastatin 40 mg daily for her lipid managementHypertensionReported bypatient.Notes:For hypertension management patient is taking hydrochlorothiazide 12.5 mg dailyReflux/GERDReported bypatient.Notes:Patient is taking Pepcid [id number] for acid reflux management without any complaints.ThyroidReported bypatient.Notes:For hypothyroidism she is taking levothyroxine 112 mcg daily NICA Floyd Attn: Accounting, [address] [facility], [place], [address], [facility] 01/22/2024 22:34:02 OBGyn Episode No OBEpisode recorded.
--- NOTE | 2024-03-29 13:54 | ED.URI ---
HPI - URI/Sore Throat General Chief Complaint: Upper Respiratory Infection Stated Complaint: cough Time Seen by Provider: 03/29/24 13:45 Focused HPI: The patient is a 74-year-old female who presents to the ER with complaints of cough, sweats, back pain, congestion, and body aches that started 2 days ago. She denies any nausea, vomiting, diarrhea. Patient endorses a history of asthma, hyperlipidemia, and hypothyroidism. She reports she has had recent wheezing and has been using her inhaler more often at home. Patient reports her son was recently diagnosed with influenza A. She denies any chest pain, abdominal pain, recent fevers. GENERAL: Well-appearing, well-nourished, and in no acute distress. HEAD: Normocephalic, atraumatic. CHEST: Clear to auscultation. ?No respiratory distress. HEART: Regular rate and rhythm.? NEURO: ?Alert and oriented x3. Patient screened in triage and initial orders placed.? ?Additional care and disposition to be based upon?diagnostic testing and treatment. Related Data Home Medications ?Medication ?Instructions ?Recorded ?Confirmed ?Last Taken ?Type mecobalamin (vitamin B12) 1,000 1,000 mcg sublingual DAILY 01/09/19 11/30/23 11/03/23 08:00 History mcg disintegrating tablet,sublingual cinnamon bark 500 mg capsule 1,000 mg PO DAILY 02/18/20 11/30/23 11/03/23 08:00 History (Cinnamon) turmeric 400 mg capsule 450 mg PO DAILY 02/18/20 11/30/23 11/03/23 08:00 History mybekwep-srqo-qfky 8 mg-folic 400 1 tablet PO DAILY 08/05/20 11/30/23 11/03/23 08:00 History mcg-K 50 mcg-lutein 300 mcg tablet (Centrum Silver Women) omega-3 fatty acids 1,000 mg 1,000 mg PO DAILY 08/05/20 11/30/23 11/03/23 08:00 History capsule (Fish Oil Concentrate) biotin 1,000 mcg chewable tablet 1,000 mcg PO DAILY 09/16/20 11/30/23 11/03/23 08:00 History diclofenac sodium 1 % topical gel 2 g topical QID PRN Mild Pain 06/16/22 11/30/23 Unknown History (Voltaren Arthritis Pain) (Scale Score 1-4) flaxseed oil 1,000 mg capsule 1,000 mg PO DAILY 06/22/23 11/30/23 11/03/23 08:00 History lysine 500 mg tablet (L-Lysine) 500 mg PO DAILY 06/22/23 11/30/23 11/03/23 08:00 History famotidine 20 mg tablet (Pepcid) 20 mg PO DAILY 11/03/23 11/30/23 11/03/23 08:00 History aspirin 81 mg tablet,delayed 81 mg PO DAILY 11/08/23 11/30/23 Unknown History release (Adult Low Dose Aspirin) Collagen powder BYMOUTH 11/30/23 11/30/23 Unknown History fluticasone fur. 100 mcg-umeclid 1 inh inhalation DAILY 11/30/23 11/30/23 Unknown History 62.5 mcg-vilant 25 mcg inhalat.powder (Trelegy Ellipta) Allergies Allergy/AdvReac Type Severity Reaction Status Date / Time Cephalosporins Allergy Unknown Skin Verified 11/30/23 09:54 Reaction Review of Systems Review of Systems: All systems reviewed & are unremarkable except as noted in HPI and below PMFSH Past Medical History Medical History Syncope Anxiety and depression BMI 34.0-34.9,adult BMI 33.0-33.9,adult Encounter for Papanicolaou smear for cervical cancer screening Left foot pain Screening mammogram, encounter for Pain in right foot Personal history of COVID-19 Encounter for routine adult health examination without abnormal findings BMI 31.0-31.9,adult Actinic keratosis 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 Paresthesia of lower extremity Elevated LFTs Encounter for screening mammogram for malignant neoplasm of breast Dysphagia Asthma MELISSA on CPAP Encounter for Medicare annual wellness exam Routine gynecological examination Pre-diabetes Sleep apnea Hearing loss BMI 32.0-32.9,adult Follow up Mild reactive airways disease Chronic cough On terminal gauger supervisor drug therapy GERD (gastroesophageal reflux disease) Hypothyroidism (acquired) Mixed hyperlipidemia Benign essential hypertension Surgical History Surgical History History of dilation and curettage History of colposcopy 04/26/08 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 She does not do drugs. She would like to be a full code and if she is unable to make decisions for herself she would like her , John, to make decisions for her Smoking status: Never smoker Second hand tobacco smoke exposure: No Alcohol intake: current Drinks per week: 4 Substance use: never Substance use type: does not use Do You Feel Safe in your Home?: Yes Lack of Transportation: No Lack of Food: Never True Current Housing: I Have Housing Concerned About Future Housing: No Difficulty Paying Gas/Electric Bills: No Difficulty Paying for Meds: No Currently Unemployed: No Education: Grade School Difficulty w/ Childcare or Family Care: No Living arrangements: other Additional living arrangements comments: Occupation/Education: occupation Additional occupation/education comments: [employer] Gender identity (if verbalized by the patient): Female Sexual Orientation (if Verbalized by the Patient): Straight or Heterosexual Spiritual care concerns: No Exam Narrative: GENERAL: Well appearing, well-nourished, non-toxic, in no acute distress. HEAD: Normocephalic, atraumatic. NECK: Supple. No adenopathy, no masses. RESPIRATORY: Airway patent, respirations nonlabored. Clear to auscultation bilaterally, no rales, rhonchi, wheezing. CARDIOVASCULAR: Regular rate and rhythm without murmurs, rubs, or gallops. Peripheral pulses 2+ and equal bilaterally. ABDOMINAL: Soft, nontender, nondistended, no hepatosplenomegaly. Normoactive BS. MUSCULOSKELETAL: Moves all extremities. Strength/ROM intact without gross deformities. SKIN: Warm, dry, normal color. No rashes. NEURO: A&O X3. Speech clear. Cranial nerves II-XII grossly intact. Steady gait. No ataxic movements. PSYCHIATRIC: Appropriate mood and affect. Normal interaction. Course Vital Signs Vital signs: Vital Signs Temperature 36.8 C 03/29/24 13:27 Pulse Rate 82 03/29/24 13:27 Respiratory Rate 18 03/29/24 13:27 Blood Pressure 127/68 03/29/24 13:27 Pulse Oximetry 95 03/29/24 13:27 Temperature 36.3 C L 03/29/24 16:08 Pulse Rate 73 03/29/24 16:08 Respiratory Rate 17 03/29/24 16:08 Blood Pressure 109/65 03/29/24 16:08 Pulse Oximetry 96 03/29/24 16:08 MDM - URI/Sore Throat MDM Narrative Medical decision making narrative: The patient is a 74-year-old female who presents to the ER with complaints of cough, sweats, back pain, congestion, and body aches that started 2 days ago. She denies any nausea, vomiting, diarrhea. Patient endorses a history of asthma, hyperlipidemia, and hypothyroidism. She reports she has had recent wheezing and has been using her inhaler more often at home. Patient reports her son was recently diagnosed with influenza A. She denies any chest pain, abdominal pain, recent fevers. Labs Ordered: Respiratory swab Imaging Ordered: Chest x-ray Medications Ordered: None necessary Results: Patient's chest x-ray indicates Chronic streaky atelectasis/scarring at the lateral lower lung zones. Diagnosis: Viral upper respiratory infection Patient Education/Shared MDM: Results shared with patient. She was strongly advised to maintain hydration status upon discharge and follow-up with her PCP. Pt will be discharged home with prescription for Tessalon Perles, Zofran, Prednisone, and an inhaler, all for supportive care. Due to patient's history has COPD she will be sent home with a prescription for a Z-Garland. Strict return precautions provided. Patient verbalized understanding is in agreement with plan. Vital signs stable at time of discharge. All questions answered. Differential Diagnosis Differential diagnosis: Likely upper respiratory infection, viral infection, influenza and other (covid) Lab Data Attestation: I reviewed the patient's lab results. Labs: Lab Results 03/29/24 Range/Units 13:31 Influenza A (RT-PCR) Negative (Negative) Influenza B (RT-PCR) Negative (Negative) RSV (RT-PCR) Negative (Negative) SARS-CoV-2 RNA (RT-PCR) Negative (Negative) Imaging Data Attestation: I personally reviewed and interpreted this imaging study as follows: Radiologist's impression: Impressions Chest X-Ray 03/29/24 14:37 IMPRESSION: 1. Chronic streaky atelectasis/scarring at the lateral lower lung zones. Discharge Plan Discharge Clinical Impression: Upper respiratory infection, History of COPD Patient Disposition: Home, Self-Care Condition: Stable Instructions: Antibiotic Form, Upper Respiratory Infection (ED) Additional Instructions: Please return to the ER with an worsening symptoms. Follow-up with primary care provider in the next 2-3 days. Take all medications as prescribed. Patient Language: Citizen Of [place] Prescriptions: New methylprednisolone [Medrol (Garland)] 4 mg tablets,dose pack See Rx Instructions .ROUTE .COMPLEX Qty: 21 0RF Rx Instructions: for 6 days azithromycin 250 mg tablet See Rx Instructions .ROUTE .COMPLEX Qty: 6 0RF Rx Instructions: For 250 mg dose pack: take 500 mg today (day 1), then 250 mg for 4 days (days 2-5) albuterol sulfate [Ventolin HFA] 90 mcg/actuation HFA aerosol inhaler 2 puff inhalation QID PRN (Reason: shortness of breath or wheezing) Qty: 6.7 0RF benzonatate 200 mg capsule 200 mg PO TID PRN (Reason: cough) Qty: 20 0RF ondansetron 4 mg tablet,disintegrating 4 mg PO Q8H Qty: 20 0RF No Action biotin 1,000 mcg tablet,chewable 1,000 mcg PO DAILY albuterol sulfate 90 mcg/actuation HFA aerosol inhaler 1 inh inhalation Q4H PRN (Reason: shortness of breath or wheezing) Qty: 8.5 1RF flaxseed oil 1,000 mg capsule 1,000 mg PO DAILY Rx Instructions: administer with a meal lysine [L-Lysine] 500 mg tablet 500 mg PO DAILY Collagen powder BYOHLINDA Felder Ellipta 100-62.5-25 mcg blister with device 1 inh inhalation DAILY aspirin [Adult Low Dose Aspirin] 81 mg tablet,delayed release (DR/EC) 81 mg PO DAILY Centrum Silver Women 8 mg iron-400 mcg-300 mcg tablet 1 tablet PO DAILY omega-3 fatty acids [Fish Oil Concentrate] 1,000 mg capsule 1,000 mg PO DAILY cinnamon bark [Cinnamon] 500 mg Capsule 1,000 mg PO DAILY turmeric 400 mg Capsule 450 mg PO DAILY ibuprofen 400 mg tablet 400 mg PO Q6H PRN (Reason: fever or pain) Qty: 30 0RF acetaminophen [Tylenol 8 Hour] 650 mg tablet extended release 650 mg PO Q8H PRN (Reason: fever or pain) Qty: 30 0RF acetaminophen 500 mg capsule 1,000 mg PO Q6H PRN (Reason: fever or pain) 6 Days Qty: 50 0RF famotidine [Pepcid] 20 mg Tablet 20 mg PO DAILY mecobalamin (vitamin B12) 1,000 mcg tablet,disintegrating 1,000 mcg SUBLINGUAL DAILY diclofenac sodium [Voltaren Arthritis Pain] 1 % gel 2 g topical QID PRN (Reason: Mild Pain (Scale Score 1-4)) Rx Instructions: apply to single elbow, wrist or hand; for hand includes palm/fingers/back of hand atorvastatin 40 mg tablet 40 mg PO DAILY Qty: 90 0RF Rx Instructions: TAKE 1 TABLET BY MOUTH DAILY duloxetine [Cymbalta] 60 mg capsule,delayed release(DR/EC) 60 mg PO DAILY Qty: 90 0RF Rx Instructions: To start taking 1 tablet by oral route after the initial 7 days of 30mg Duloxetine. Thank you. levothyroxine 112 mcg tablet See Rx Instructions .ROUTE .COMPLEX Qty: 100 2RF Dose Instruction: TAKE 1 TABLET BY MOUTH DAILY (DISCONTINUE THE LEVOTHYROXINE 125) Rx Instructions: TAKE 1 TABLET BY MOUTH DAILY (DISCONTINUE THE LEVOTHYROXINE 125) Follow-up/Referrals: Alfred Lopez MD [Primary Care Provider] - Time of Disposition: 17:54
[2024-03-29 14:13] LABS: Influenza A QL RT-PCR Negative (Negative); Influenza B QL RT-PCR Negative (Negative); RSV RNA, RT-PCR Negative (Negative); SARS-CoV-2 RNA PCR Negative (Negative)
[2024-03-29 16:08] VITALS: BP 109/65; PULSE 73; RESP 17; TEMP 36.3; O2SAT 96
--- NOTE | 2024-03-29 17:59 | PC.NURSE ---
ok to not give albuterol. edp ordering rx for pt to picking machine operator instead and d/c from waiting area.
--- OUTSIDE RECORDS SUMMARY | 2024-03-29 18:02 | XMS_ITS | Encounter Summary ---
Author Organization [employer] Address [address] [place] [address] Care Team Providers Care Change Management Specialist Name Role Phone Gurpreet Massey MD Primary Care Provider [phone]- [phone] Encounter Details Date Type Department Care Team (Late st Contact Info) Description 11/20/2003 Outpatient Historical [facility] (Adt Card[facility]) [address] 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
--- OUTSIDE RECORDS SUMMARY | 2024-03-29 18:02 | XMS_ITS | Encounter Summary ---
Author Organization [employer] Address 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
--- OUTSIDE RECORDS SUMMARY | 2024-03-29 18:02 | XMS_ITS | Encounter Summary ---
Author Organization [employer] Address 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
--- OUTSIDE RECORDS SUMMARY | 2024-03-29 18:02 | XMS_ITS | Encounter Summary ---
Author Organization [facility] Address [address] [place] [address] Care Team Providers Care Touch Up Painter Name Role Phone Gurpreet Massey MD Primary Care Provider +1- [phone] Encounter Details Date Type Department Care Team (Late st Contact Info) Description 11/12/2004 Outpatient Historical [facility] Rocha, Evan Ramos MD [address] [place] [phone] SCREENING MAMM-MAILG NEOPL NEC (Primary Dx) Social History Tobacco Use Types Packs/Day Years Used Date Smoking Tobacco: Never Assessed Comments Unknown Sex and Gender Information Value Date Recorded Sex Assigned at Not on file 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
--- OUTSIDE RECORDS SUMMARY | 2024-03-29 18:02 | XMS_ITS | Encounter Summary ---
Author Organization [employer] Address 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
--- OUTSIDE RECORDS SUMMARY | 2024-03-29 18:02 | XMS_ITS | Clinical Summary ---
Author Organization 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 Gender Identity Not on file Sexual Orientation Not on file Plan of Treatment Health Maintenance Due Date Last Done Comments DTAP/TDAP/TD VACCINES (1 - Tdap) 1970 BREAST CANCER SCREENING 1991 COLORECTAL SCREENING 02/04/1996 Colorectal Cancer Screening 02/04/1996 FIT-DNA Q 3 years 02/04/1996 FIT/FOBT Q 1 year 02/04/1996 Flex Sig/CT Colonography Q 5 years 02/04/1996 PNEUMOCOCCAL VACCINE 65+ YEARS (1 of 1 - PCV) 02/04/20 ZOSTER VACCINE (1 of 2) 2001 OSTEOPOROSIS SCREENING 02/04/2016 INFLUENZA VACCINE (#1) 2023 RSV VACCINE (60+ or ) (1 - 1-dose 75+ series) 2026 Care Teams Commodities Broker Relationship Specialty Start Date End Date Gurpreet Massey MD [address] [place] [phone] PCP - General 11/18/03
== END 2024-03-29 18:33 | disposition home or self-care (01) ==
PROVIDERS: Emergency Provider Registered Nurse; PCP Internal Medicine
DX: J06.9 Acute upper respiratory infection, unspecified (principal); Z79.82 Long term (current) use of aspirin; F41.8 Other specified anxiety disorders; G47.33 Obstructive sleep apnea (adult) (pediatric); Z99.89 Dependence on other enabling machines and devices; E03.9 Hypothyroidism, unspecified; I10 Essential (primary) hypertension; K21.9 Gastro-esophageal reflux disease without esophagitis; J44.9 Chronic obstructive pulmonary disease, unspecified; Z20.822 Contact with and (suspected) exposure to COVID-19
CPT/HCPCS: 71046; 87637; 99283; A9270

== ENCOUNTER 2024-06-29 10:12 | Outpatient (CLI) | payer MEDICARE, SELFPAY ==
--- NOTE | ~2024-06-29 | MM_ITS ---
EXAMINATION: MM screening gustavo BI w mary HISTORY: Screening TECHNIQUE: Craniocaudal and mediolateral oblique 3-D tomosynthesis images were obtained and synthetic 2-D images were generated. CAD analysis was submitted and interpreted. COMPARISON: Comparison to multiple prior studies sequentially, with oldest reviewed study dated 07/2016. BREAST PARENCHYMAL COMPOSITION: Dense: The breasts are heterogeneously dense, which may obscure small masses FINDINGS: There is no evidence of suspicious mass, calcification, or architectural distortion to sugg est malignancy in either breast. There has been no suspicious interval change. IMPRESSION: 1. No mammographic evidence of malignancy. 2. Recommend routine screening mammography in one year. BI-RADS Category 1: Negative Reviewed, dictated and finalized at location A.
--- OUTSIDE RECORDS SUMMARY | 2024-06-29 10:30 | XMS_ITS | Encounter Summary ---
Author Organization [facility] Address 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
--- OUTSIDE RECORDS SUMMARY | 2024-06-29 10:30 | XMS_ITS | Data Portability ---
Author Organization KELSEY DAKOTAAlona Bear Address [address] [place] [address] Care Team Providers Care Steel Fixer Name Role Phone HANNA CHEUNG Primary Care Provider Unavailab le Assessment No assessment recorded. Plan of Treatment Reminders Order Date Submit Date Provider Last Modified By Organization Details Last Modified Time Details Appointments ANY 15 2024 08:15A M NICA Floyd Not available Not available Not available Lab CBC w/ auto diff 2023 025 [place] [facility], [address], [place], [address], 05/26/2024 09:08:58 hepatic function panel, serum 2023 025 [place] Nilda, [address]22 [address], [place], [address], 05/26/2024 09:08:55 BMP, serum or plasma 2023 025 [place] Greg, 2022 [address], [place], [address], 05/26/2024 09:08:57 TSH + free T4, serum 2023 025 [place] Garza, 2022 [address], [place], [address], 05/26/2024 09:08:53 lipid panel, serum 2023 025 [place] [facility], [address], [address], [place], [address], 05/26/2024 09:08:54 Referral None recorded. Procedures None recorded. Surgeries None recorded. Imaging MAMMO, screening , digital, bilateral [address] (Mammography) , [address], [place], [address], 04/11/2024 13:09:23 Medication Orders None recorded. Patient TargetsNo targets recorded. Patient Instructions Encounter Date Encounter Id Patient Instructions Last Modified By Organization Details Last Modified Time 01/12/2024 [id number] A healthy lifestyle: care instructions [email or web address] Not available 01/12/2024 09:57:21 Reason for Referral None Reported. Results Created Date Observation Date Name Description Value Unit Range Abnormal Flag Note LastModifiedBy Organization Detail LastModifiedTime 05/26/1905/26/2024 TSH+F REE T4 TSH 1.420 uIU/m L 0.450- 4.500 Not Available [facility] ([facility]) [address] [place], [address], 05/26/2024 09:08:53 05/26/19 25 05/26/2024 TSH+F REE T4 T4,free(dire ct) 1.17 NG/dL 0.82-1 .77 Not Available [facility] ([facility]) [address] [place], [address], 05/26/2024 09:08:53 05/26/1905/26/2024 LIPID PANEL WITH LDL/H DL RATIO cholesterol, total 167 mg/dL 100-19 9 Not Available [facility] ([facility]) [address] [place], [address], 05/26/2024 09:08:54 05/26/19 25 05/26/2024 LIPID PANEL WITH LDL/H DL RATIO triglyceride s 76 mg/dL 0-149 Not Available [facility] ([facility]) [address] [place], [address], 05/26/2024 09:08:54 05/26/19 25 05/26/2024 LIPID PANEL WITH LDL/H DL RATIO HDL cholesterol 74 mg/dL >39 Not Available [facility] ([facility]) [address] [place], [address], 05/26/2024 09:08:54 05/26/19 25 05/26/2024 LIPID PANEL WITH LDL/H DL RATIO VLDL cholesterol lila 14 mg/dL 5-40 Not Available [facility] ([facility]) [address] [place], [address], 05/26/2024 09:08:54 05/26/19 25 05/26/2024 LIPID PANEL WITH LDL/H DL RATIO LDL chol calc ([facility]) 79 mg/dL 0-99 Not Available [facility] ([facility]) [address] [place], [address], 05/26/2024 09:08:54 05/26/19 25 05/26/2024 LIPID PANEL WITH LDL/H DL RATIO LDL/HDL ratio 1.1 ratio 0.0-3. 2 LDL/H DL Ratio Men Women 1/2 Avg.R isk 1.0 1.5 Avg.R isk 3.6 3.2 2X Avg.R isk 6.2 5.0 3X Avg.R isk 8.0 6.1 Not Available [facility] ([facility]) [address] [place], [address], 05/26/2024 09:08:54 05/26/19 25 05/26/2024 HEPAT IC FUNCT ION PANEL (7) protein, total 6.5 g/dL 6.0-8. 5 Not Available [facility] ([facility]) [address] [place], [address], 05/26/2024 09:08:55 05/26/19 25 05/26/2024 HEPAT IC FUNCT ION PANEL (7) albumin 4.4 g/dL 3.8-4. 8 Not Available [facility] ([facility]) [address] [place], [address], 05/26/2024 09:08:55 05/26/19 25 05/26/2024 HEPAT IC FUNCT ION PANEL (7) bilirubin, total 0.4 mg/dL 0.0-1. 2 Not Available [facility] ([facility]) [address] [place], [address], 05/26/2024 09:08:55 05/26/19 25 05/26/2024 HEPAT IC FUNCT ION PANEL (7) bilirubin, direct 0.17 mg/dL 0.00-0 .40 Not Available [facility] ([facility]) [address] [place], [address], 05/26/2024 09:08:55 05/26/19 25 05/26/2024 HEPAT IC FUNCT ION PANEL (7) alkaline phosphatase 74 IU/L 44-121 Not Available [facility] ([facility]) [address] [place], [address], 05/26/2024 09:08:55 05/26/19 25 05/26/2024 HEPAT IC FUNCT ION PANEL (7) AST (SGOT) 33 IU/L 0-40 Not Available [facility] ([facility]) [address] [place], [address], 05/26/2024 09:08:55 05/26/19 25 05/26/2024 HEPAT IC FUNCT ION PANEL (7) ALT (SGPT) 27 IU/L 0-32 Not Available [facility] ([facility]) [address] [place], [address], 05/26/2024 09:08:55 05/26/19 25 05/26/2024 BMP7+ EGFR glucose 114 mg/dL 70-99 above high normal Not Available [facility] ([facility]) [address] [place], [address], 05/26/2024 09:08:56 05/26/19 25 05/26/2024 BMP7+ EGFR BUN 20 mg/dL 8-27 Not Available [facility] ([facility]) [address] [facility] [place], [address], 05/26/2024 09:08:56 05/26/19 25 05/26/2024 BMP7+ EGFR creatinine 0.79 mg/dL 0.57-1 .00 Not Available [facility] ([facility]) [address] [facility], [place], [address], 05/26/2024 09:08:56 05/26/19 25 05/26/2024 BMP7+ EGFR eGFR 79 mL/mi n/1.7 3 >59 Not Available [facility] ([facility]) [address] [facility], [place], [address], 05/26/2024 09:08:56 05/26/19 25 05/26/2024 BMP7+ EGFR sodium 140 mmol/ L 134-14 4 Not Available [facility] ([facility]) [address] [place], [address], 05/26/2024 09:08:56 05/26/19 25 05/26/2024 BMP7+ EGFR potassium 4.4 mmol/ L 3.5-5. 2 Not Available [facility] ([facility]) [address] [place], [address], 05/26/2024 09:08:56 05/26/19 25 05/26/2024 BMP7+ EGFR chloride 101 mmol/ L 96-106 Not Available [facility] ([facility]) [address] [place], [address], 05/26/2024 09:08:56 05/26/19 25 05/26/2024 BMP7+ EGFR carbon dioxide, total 26 mmol/ L 20-29 Not Available [facility] ([facility]) [address] [place], [address], 05/26/2024 09:08:56 05/26/19 25 05/26/2024 CBC WITH DIFFE RENTI AL/PL ATELE T WBC 4.6 x10e3 /uL 3.4-10 .8 Not Available [facility] ([facility]) [address] [facility], [place], [address], 05/26/2024 09:08:58 05/26/19 25 05/26/2024 CBC WITH DIFFE RENTI AL/PL ATELE T RBC 4.87 x10e6 /uL 3.77-5 .28 Not Available [facility] ([facility]) [address] [place], [address], 05/26/2024 09:08:58 05/26/19 25 05/26/2024 CBC WITH DIFFE RENTI AL/PL ATELE T hemoglobin 14.3 g/dL 11.1-1 5.9 Not Available [facility] ([facility]) [address] [place], [address], 05/26/2024 09:08:58 05/26/1905/26/2024 CBC WITH DIFFE RENTI AL/PL ATELE T hematocrit 43.3 % 34.0-4 6.6 Not Available [facility] ([facility]) [address] [place], [address], 05/26/2024 09:08:58 05/26/19 25 05/26/2024 CBC WITH DIFFE RENTI AL/PL ATELE T MCV 89 fL 79-97 Not Available [facility] ([facility]) [address] [place], [address], 05/26/2024 09:08:58 05/26/19 25 05/26/2024 CBC WITH DIFFE RENTI AL/PL ATELE T MCH 29.4 pg 26.6-3 3.0 Not Available [facility] ([facility]) [address] [place], [address], 05/26/2024 09:08:58 05/26/19 25 05/26/2024 CBC WITH DIFFE RENTI AL/PL ATELE T MCHC 33.0 g/dL 31.5-3 5.7 Not Available [facility] ([facility]) [address] [facility], [place], [address], 05/26/2024 09:08:58 05/26/19 25 05/26/2024 CBC WITH DIFFE RENTI AL/PL ATELE T RDW 12.5 % 11.7-1 5.4 Not Available [facility] ([facility]) [address] [facility], [place], [address], 05/26/2024 09:08:58 05/26/19 25 05/26/2024 CBC WITH DIFFE RENTI AL/PL ATELE T platelets 259 x10e3 /uL 150-45 0 Not Available [facility] ([facility]) [address] [facility], [place], [address], 05/26/2024 09:08:58 05/26/19 25 05/26/2024 CBC WITH DIFFE RENTI AL/PL ATELE T neutrophils 54 % notest ab. Not Available [facility] ([facility]) [address] [facility], [place], [address], 05/26/2024 09:08:58 05/26/19 25 05/26/2024 CBC WITH DIFFE RENTI AL/PL ATELE T lymphs 33 % notest ab. Not Available [facility] ([facility]) [address] [facility], [place], [address], 05/26/2024 09:08:58 05/26/19 25 05/26/2024 CBC WITH DIFFE RENTI AL/PL ATELE T monocytes 8 % notest ab. Not Available [facility] ([facility]) [address] [facility], [place], [address], 05/26/2024 09:08:58 05/26/19 25 05/26/2024 CBC WITH DIFFE RENTI AL/PL ATELE T eos 5 % notest ab. Not Available [facility] ([facility]) [address] [place], [address], 05/26/2024 09:08:58 05/26/19 25 05/26/2024 CBC WITH DIFFE RENTI AL/PL ATELE T basos 0 % notest ab. Not Available [facility] ([facility]) [address] [facility], [place], [address], 05/26/2024 09:08:58 05/26/1905/26/2024 CBC WITH DIFFE RENTI AL/PL ATELE T neutrophils (absolute) 2.5 x10e3 /uL 1.4-7. 0 Not Available [facility] ([facility]) [address] [place], [address], 05/26/2024 09:08:58 05/26/19 25 05/26/2024 CBC WITH DIFFE RENTI AL/PL ATELE T lymphs (absolute) 1.5 x10e3 /uL 0.7-3. 1 Not Available [facility] ([facility]) [address] [place], [address], 05/26/2024 09:08:58 05/26/19 25 05/26/2024 CBC WITH DIFFE RENTI AL/PL ATELE T monocytes(ab solute) 0.4 x10e3 /uL 0.1-0. 9 Not Available [facility] ([facility]) [address] [place], [address], 05/26/2024 09:08:58 05/26/19 25 05/26/2024 CBC WITH DIFFE RENTI AL/PL ATELE T eos (absolute) 0.2 x10e3 /uL 0.0-0. 4 Not Available [facility] ([facility]) [address] [place], [address], 05/26/2024 09:08:58 05/26/19 25 05/26/2024 CBC WITH DIFFE RENTI AL/PL ATELE T baso (absolute) 0.0 x10e3 /uL 0.0-0. 2 Not Available [facility] ([facility]) [address] [facility], [place], [address], 05/26/2024 09:08:58 05/26/19 25 05/26/2024 CBC WITH DIFFE RENTI AL/PL ATELE T immature granulocytes 0 % notest ab. Not Available [facility] ([facility]) [address] [facility], [place], [address], 05/26/2024 09:08:58 05/26/19 25 05/26/2024 CBC WITH DIFFE RENTI AL/PL ATELE T immature grans (abs) 0.0 x10e3 /uL 0.0-0. 1 Not Available [facility] ([facility]) [address] [facility], [place], [address], 05/26/2024 09:08:58 Result Notes None recorded. Problems Name Problem SNOMED Code Status Onset Date Resolution Date Notes Provider Name and Address Organization Details Recorded Time Gastroesophage al reflux disease without esophagitis 193947141 Active 2023 NICA Floyd Attn: Hill miranda,[address] [facility], [place], [address], [facility] 4 09:40:04 Hypothyroidism 17849382 Active 2023 NICA Floyd Attn: Hill miranda,[address] [facility], [place], [address], [facility] 4 09:40:04 Hyperlipidemia 98439623 Active 2023 NICA Floyd Attn: Hill miranda,[address] [facility], [place], [address], [facility] 4 09:40:05 Body mass index 30+ - obesity 202906955 Active 2023 NICA Floyd Attn: Accountin g,[address] [facility] [place], [address], [facility] 4 09:40:08 Obesity 158224570 Active 2023 NICA Floyd Attn: Accountin g,[address] [facility], [place], [address], [facility] 4 09:40:09 Benign essential hypertension 5390034 Active 2023 NICA Floyd Attn: Accountin g,[address] [facility], [place], [address], [facility] 4 09:40:11 Long-term drug therapy Active 2023 NICA Floyd Attn: Accountin g,[address] [facility], [place], [address], [facility] 4 09:40:21 Asthma 035061019 Active 2023 NICA Floyd Attn: Accountin g,[address] [facility], [place], [address], [facility] 4 13:21:29 Problem Notes None recorded. Procedures Surgical History Date Name Laterality Status Provider Name and Address Organization Details Recorded Time cholecystectomy completed Leonel Leblanc MA [facility] 01/12/2024 09:19:40 Knee Surgery completed Leonel Leblanc MA [facility] 01/12/2024 09:19:59 Imaging Results None recorded. Procedure [...] t Available azithromyci n 250 mg tablet TAKE 2 TABLETS BY MOUTH DAY-1 THEN 1 TABLET DAILY DAY-2 TO DAY-5 active Not Available Not Available No t Available benzonatate 200 mg capsule TAKE 1 CAPSULE BY MOUTH THREE TIMES DAILY NEEDED FOR COUGH active Not Available Not Available No t Available prednisone 20 mg tablet TAKE 1 [...] completed Not Available Not Available Not Available methylpredn isolone 4 mg tablets in a dose pack FOLLOW PACKAGE DIRECTION S active Not Available Not Available No t Available albuterol sulfate HFA 90 mcg/actuati on aerosol inhaler INHALE 2 PUFFS BY MOUTH FOUR TIMES DAILY NEEDED FOR SHORTNESS OF BREATH OR WHEEZING active Not Available Not Available No t Available ondansetron 4 mg disintegrat ing tablet DISSOLVE 1 TABLET ON THE TONGUE EVERY 8 HOURS active Not Available Not Available No t Available cefdinir 300 mg capsule TAKE 1 CAPSULE BY MOUTH EVERY 12 HOURS FOR SINUSITIS active Not Available Not Available No t Available levothyroxi ne 112 mcg tablet Take 1 tablet every day by oral route for 100 days. active Not Available Not Available No t Available duloxetine 30 mg capsule,del ayed release TAKE 1 CAPSULE BY MOUTH ONCE DAILY FOR 7 DAYS 01/11 completed Not Available Not Available Not Available duloxetine 60 mg capsule,del ayed release Take 1 capsule every day by oral route. 2024 active Not Available Not Available Not Avai lable hydrochloro thiazide 12.5 mg tablet Take 1 tablet every day by oral route for 100 days. active Not Available Not Available No t Available Trelegy Ellipta 100 mcg-62.5 mcg-25 mcg powder for inhalation Inhale 1 puff every day by inhalatio n route. 03/30 completed Not Available Not Available Not Available Breztri Aerosphere 160 mcg-9mcg-4. 8mcg/actuat ion HFA aerosol inhaler Inhale 2 puffs twice a day by inhalatio n route. 2024 active Not Available Not Available Not Avai lable Vitals Date Recorded Body weight Respiratory rate Body mass index (BMI) Body height Oxygen saturation Oxygen saturation in Arterial blood by Pulse oximetry Heart rate Systolic blood pressure Diastolic blood pressure Provider Name and Address Organization Details Last Updated DateTime 4 14992.2 6 g 18 /min 31.2 kg/m2 160.02 cm 98 % 98 % 78 /min 126 mm[Hg] 82 mm[Hg] Leonel Leblanc MA [facility] 09:24:00 Date Recorded Systolic blood pressure Diastolic blood pressure Provider Name and Address Organization Details Last Updated DateTime 01/12/2024 140 mm[Hg] 80 mm[Hg] NICA Floyd Attn: Accounting,[address] [place], [address], [facility] 01/12/2024 10:00:47 Social History Question Answer Notes LastModified by Organizat ion Details LastModified Time Tobacco Smoking Status Never Smoker Leonel Leblanc MA null, [facility] 01/12/2024 09:20:33 Do You Have An [...] Anxious, Or Unable To Sleep At Night)? [id number] Information not available 01/12/2024 Do You Use [...] Response Coronary Artery Disease N Other N Atrial Fibrillation N High Blood Pressure N Kidney or Bladder Problems N Thyroid Problems N Depression N COPD N Blood Clots N GI Problems N Have you had a mammogram in the last yea r? N Skin Problems N Anemia N Heart Attack ([place]) N Anxiety Disorder Y Diabetes N Muscle, [...] [place] [facility] 01/12/2024 09:15:47 zoster recombinant 9 completed Leonel Lebl[place], [place] [facility] 01/12/2024 09:15:47 Influenza, high-dose, quadrivalent, PF 3 completed Leonel Lebl[place] [facility] 01/12/2024 09:15:47 Influenza, high-dose, quadrivalent, PF 1 completed Le[place] Lebl[place] [facility] 01/12/2024 09:15:47 Influenza, high-dose, quadrivalent, PF 2 completed Leonle Leblanc [place] [facility] 01/12/2024 09:15:47 Influenza, adjuvanted, quadrivalent, PF 0 completed Leonel Lebl[place] [facility] 01/12/2024 09:15:47 COVID-19, mRNA, LNP-S, PF, 100 mcg/0.5mL dose or 50 mcg/0.25mL dose 1 completed SH[place], [place] [facility] 01/12/2024 09:15:47 COVID-19, mRNA, LNP-S, PF, 100 mcg/0.5mL dose or 50 mcg/0.25mL dose 1 completed SH[place] [facility] 01/12/2024 09:15:47 COVID-19, mRNA, LNP-S, PF, 100 mcg/0.5mL dose or 50 mcg/0.25mL dose 2 completed SH[place] [facility] 01/12/2024 09:15:47 COVID-19, mRNA, LNP-S, PF, 100 mcg/0.5mL dose or 50 mcg/0.25mL dose 1 completed SH[place] [facility] 01/12/2024 09:15:47 COVID-19, mRNA, LNP-S, bivalent, PF, 50 mcg/0.5 mL or 25mcg/0.25 mL dose 2 completed SHONNA [place] [facility] 01/12/2024 [...] 09:15:47 Influenza, high-dose, trivalent, PF 4 completed Dimitriosjackiecitlali Benji SHONNA null, [place] [facility] 01/12/2024 09:15:47 Influenza, split virus, trivalent, preservative 6 completed Rupalcitlali Benji [place] null, [place] 01/12/2024 09:15:47 Influenza, split virus, trivalent, preservative 4 completed Leonel Leblanc [place], [place] 01/12/2024 09:15:47 Influenza, split virus, trivalent, preservative 3 completed Rupalcitlali Benji HSONNA eastman, [facility] 01/12/2024 09:15:47 Influenza, split virus, trivalent, PF 5 completed Leonel Leblanc SHONNA [place]man, [facility] 01/12/2024 09:15:47 Influenza, split virus, trivalent, PF 6 completed Rupalcitlali Benji SHONNA [place], [place] [facility] 01/12/2024 09:15:47 Past Encounters Encounter ID Performer Location Encounter Start Date Encounter Closed Date Diagnosis/Indication Diagnosis SNOMED-CT Code Diagnosis ICD10 Code Diagnosis Note [id number] Gurpreet Lennon MD [facility] [place] [address] [facility] [address] [place] [address] 01/12/2024 08:55:47 01/12/2024 13:45:33 Body mass index 30+ - obesity 594135276 Z68.31 BMI is 31.2 Obesity 246626751 E66.9 discussed healthy diet, exercise, controllin g carbohydra miya and added sugars in the diet Screening mammography 24 586961 Z12.31 Annual mammogram is ordered Hyperlipidemia 49899242 E78.5 For hyperlipid emia we will continue atorvastat in 40 mg daily and check an updated fasting lipid panel in April Hypothyroidism 51379175 E03.9 Repeat thyroid function panel in April and continue levothyrox ine 112 mcg daily Benign ess ential hypertension 8767767 I10 Blood pressure is running borderline at 140/80. Continue hydrochlor othiazide 12.5 mg daily. We will monitor this closely and have patient to record home readings and if she finds that her blood pressure consistent ly is in the 140-150 or above range she will reach out to the provider via the portal. Gastroesop hageal reflux disease without esophagitis 321188222 K21.9 For acid reflux patient is currently taking Pepcid 20 mg twice daily Long-term drug therapy 129028212 Z79.891 Routine labs ordered for April Health Concerns Section Related Observation LastModified by Organization Detai ls LastModified Time None Recorded Concern Status LastModified by Organization Details LastModified Time None Recorded Advance Directives Directive Y: Payers Encounter Date Sequence Insurance Name Policy Number Policy Tim Covered Member ID Tim Member ID Guarantor Name 01/12/2024 1 [facility] (MEDICARE REPLACEMENT/A DVANTAGE - HMO) [id number] Yadira Briddell [id number] Yadira Briddell 01/12/2024 2 [facility] (MEDICARE REPLACEMENT/A DVANTAGE - HMO) [id number] Yadira Briddell [id number] Yadira Briddell Notes Date Note Type Note Provider Name and Address Organization Details Recorded Time 01/12/20 24 text/ht ml Anxiety/DepressionReported bypatient.Notes:For anxiety and depression management she is taking duloxetine 60 mg daily.HyperlipidemiaReported bypatient.Notes:Patient is taking atorvastatin 40 mg daily for her lipid managementHypertensionReported bypatient.Notes:For hypertension management patient is taking hydrochlorothiazide 12.5 mg dailyReflux/GERDReported bypatient.Notes:Patient is taking Pepcid [id number] for acid reflux management without any complaints.ThyroidReported bypatient.Notes:For hypothyroidism she is taking levothyroxine 112 mcg daily NICA Floyd Attn: Accounting, [address] [place], [address], [place] [facility] 01/22/2024 22:34:02 OBGyn Episode No OBEpisode recorded.
--- OUTSIDE RECORDS SUMMARY | 2024-06-29 10:30 | XMS_ITS | Encounter Summary ---
Author Organization [facility] Address [address] [place] [address] Care Team Providers Care Pre K Special Education Teacher Name Role Phone Gurpreet Massey MD Primary Care Provider +1- [phone] Encounter Details Date Type Department Care Team (Late st Contact Info) Description 11/20/2003 Outpatient Historical [facility] [place] [facility] (Adt Cardiology-[place]) [address] 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
--- OUTSIDE RECORDS SUMMARY | 2024-06-29 10:30 | XMS_ITS | Encounter Summary ---
Author Organization [facility] Address 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
--- OUTSIDE RECORDS SUMMARY | 2024-06-29 10:30 | XMS_ITS | Encounter Summary ---
Author Organization [facility] Address [address] [place] [address] Care Team Providers Care Rn Baby Name Role Phone Gurpreet Massey MD Primary Care Provider +1- [phone] Encounter Details Date Type Department Care Team (Late st Contact Info) Description 11/12/2004 Outpatient Historical [facility] Rocha, Evan Ramos MD [address] [place] [phone] SCREENING MAMM-MAILG NEOPL NEC (Primary Dx) Social History Tobacco Use Types Packs/Day Years Used Date Smoking Tobacco: Never Assessed Comments Unknown Sex and Gender Information Value Date Recorded Sex Assigned at Not on file 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
--- OUTSIDE RECORDS SUMMARY | 2024-06-29 10:30 | XMS_ITS | Encounter Summary ---
Author Organization [facility] Address 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
--- OUTSIDE RECORDS SUMMARY | 2024-06-29 10:30 | XMS_ITS | Clinical Summary ---
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 Gender Identity Not on file Sexual Orientation Not on file Plan of Treatment Health Maintenance Due Date Last Done Comments DTAP/TDAP/TD VACCINES (1 - Tdap) 1970 BREAST CANCER SCREENING 1991 COLORECTAL SCREENING 02/04/1996 Colorectal Cancer Screening 02/04/1996 FIT-DNA Q 3 years 02/04/1996 FIT/FOBT Q 1 year 02/04/1996 Flex Sig/CT Colonography Q 5 years 02/04/1996 PNEUMOCOCCAL VACCINE 50+ YEARS (1 of 1 - PCV) 02/04/20 ZOSTER VACCINE (1 of 2) 2001 OSTEOPOROSIS SCREENING 02/04/2016 INFLUENZA VACCINE (#1) 2023 RSV VACCINE (60+ or ) (1 - 1-dose 75+ series) 2026 Care Teams Passenger Attendant Relationship Specialty Start Date End Date Gurpreet Massey MD [address] [place] [phone] PCP - General 11/18/03
== END 2024-06-29 10:13 | disposition home or self-care (01) ==
PROVIDERS: PCP Internal Medicine; Visit Provider Physician Assistant
DX: Z12.31 Encounter for screening mammogram for malignant neoplasm of breast (principal)
CPT/HCPCS: 77063; 77067